=== PATIENT | female | born 1980 | race Caucasian/White ===

== ENCOUNTER 2017-05-17 18:33 | Emergency (ER) | payer MEDICAID ==
[~2017-05-17] VITALS: Ht 160 cm; Wt 97.2 kg
[~2017-05-17 18:33] MED LIST: BACTRIM DS 8001 TAB PO; CIPRO 500MG TA500 MG PO; FLEXERIL10 MG PO; FLOMAX 0.4MG C0.4 MG PO; FLOMAX0.4 MG PO; HYDROCODONE-APA1 TA1 PO; HYDROCODONE1 TABLET PO; IBU-8800 MG PO; IBUPROFEN800 MG PO; KEFLEX 500MG.500 MG PO; LORATADINE 10MG10 M1 PO; LORTAB 5/500 501 TAB PO; MACROBID 100MG100 MG PO; MONTELUKAST SOD10 MG PO; NOMEDS *; NORCO 325 MG-101 TAB PO; PERCOCET 325 MG1 TA3 PO; PHENERGAN 25MG.25 M1 PO; PRILOSEC OTC20 MG PO; PRILOSEC20 MG PO; TORADOL10 MG PO; ULTRAM50 MG PO; ZOFRAN ODT4 MG PO
--- OUTSIDE RECORDS SUMMARY | 2017-05-17 18:48 | External Medical Summary Rpt ---
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 66207 [facility] QUEST BCT 5 DIAGNOSTI DIAGNOSTI ISOL&PRSM CS CS PTV ID ISOLATE EA URINE THER 89350 TROY SIMMONS PROPH/DX 5 [facility] NJX IV INC INC PUSH SINGLE/1S T SBST/[place] [address] [facility] ABDOMEN & 5 MEDICAL BERT PELVIS IMAGING W/O ASS CONTRAST MATERIAL RADEX 43597 TROY SIMMONS ANKLE 5 [facility] COMPLETE INC INC MINIMUM 3 VIEWS CULTURE 27969 QUEST QUEST BACTERIAL 5 DIAGNOSTI DIAGNOSTI CS CS QUANTTATI VE COLONY COUNT URINE URINLS 23892 A C FIELD AMB DIP 5 NOAH VIDAL STICK/TAB PSC [place] [address] TROY SIMMONS LIPASE 3 [facility] INC INC URINE 06221 TROY SIMMONS 3 [facility] TEST INC INC VISUAL COLOR CMPRSN METHS COMPREHEN 58172 TROY SIMMONS SIVE 3 [facility] METABOLIC INC INC PANEL RADEX ABD 49523 DEON DEON COMPL 3 BERT BERT AQT ABD W/S/E/D VIEWS 1 VIEW BLOOD 37627 TROY SIMMONS COUNT 3 [facility] COMPLETE INC INC AUTO&AUTO DIFRNTL WBC BLOOD 43522 TROY SIMMONS COUNT 1 [facility] COMPLETE INC INC AUTO&AUTO DIFRNTL WBC COMPREHEN 13248 TROY SIMMONS SIVE 1 [facility] METABOLIC INC INC PANEL BLOOD 28507 TROY SIMMONS OCCULT 1 [facility] PEROXIDAS INC INC E ACTV QUAL FECES 1-3 SPEC URNLS DIP 44250 TROY SIMMONS 1 [facility] STICK/TAB INC INC LET REAGENT AUTO MICROSCOP Y URINE 96521 TROY SIMMONS 1 [facility] TEST INC INC VISUAL COLOR CMPRSN METHS ANTIBODY 83347 [facility] HELICOBAC [address] HOLDING HOLDING PYLORI IAADIADOO 74092 [facility] INGRID 1 [facility] JOSEP STREPTOCO E CENTER CCUS GROUP A LIPID 91424 [facility] PANEL 1 AMERIC AMERIC HOLDING HOLDING 25 25419 [facility] HYDROXY 1 AMERIC AMERIC INCLUDES HOLDING HOLDING FRACTIONS IF PERFORMED OPHTH 32632 [facility] MEDICAL 1 [facility] XM&EVAL CENTER COMPRE NEW PT 1/> VST DETERMINA 62834 [facility] TION 1 [facility] REFRACTIV CENTER E STATE COLLECTIO 20731 [facility] INGRID N VENOUS 1 [facility] JOSEP BLOOD E CENTER VENIPUNCT URE GENERAL 68024 [facility] HEALTH 1 AMERIC AMERIC PANEL HOLDING HOLDING IAADIADOO 00061 [facility] GRAVES 0 [facility]ALTH[facility] LES STREPTOCO E CENTER CCUS GROUP A URNLS DIP 60245 [facility] GRAVES, 0 [facility] JENS W STICK/TAB E CENTER LET RGNT AUTO W/O MICROSCOP Y GENERAL 08095 [facility] HEALTH 0 AMERIC AMERIC PANEL HOLDING HOLDING COLLECTIO 46973 [facility] GRAVES, N VENOUS 0 [facility] JENS W BLOOD E CENTER VENIPUNCT URE LAPAROSCO 14637 HARDEEP MEIER, PY SURG 0 GARY VEGA CHOLECYST ECTOMY BX LVR 54252 HARDEEP MEIER, NDL DONE 0 GARY GARY PURPOSE TM OTH MAJOR PX LEVEL V 73121 PATHOLOGY PATHOLOGY SURG 0 & & PATHOLOGY CYTOLOGY CYTOLOGY LAB LAB GROSS&TY ROSCOPIC EXAM LEVEL III 64524 PATHOLOGY PATHOLOGY SURG 0 & & PATHOLOGY CYTOLOGY CYTOLOGY LAB LAB GROSS&TY ROSCOPIC EXAM ANES 37257 [place] POND, INTRAPERI 0 ANESTHESI NICOLE D TONEAL A GROUP UPPER PSC ABDOMEN W/LAPS NOS SPCL STN 08157 PATHOLOGY PATHOLOGY 2 I&R 0 & & EXCPT CYTOLOGY CYTOLOGY MICROORG/ LAB LAB ENZYME/[place] [address] [facility] LIPASE 0 N N [facility] HPYLORI 29982 [facility] DRUG 0 N N ADMINISTR [facility] [place] [address] [facility] AMYLASE 0 N N [facility] BLOOD 40546 [facility] COUNT 0 N N COMPLETE [facility] AUTO&AUTO [facility] DIFRNTL WBC GONADOTRO 06255 [facility] PIN 0 N N [facility] QUALITATI VE COLLECTIO 02588 [facility] N VENOUS 0 N N BLOOD [facility] U[facility] COMPREHEN 68819 [facility] SIVE 0 N N METAB[facility] HEPATBL 73341 [facility] DUX SYS 0 N N IMG [facility] INJECTION J2805 [facility] [address] MICROGRAM S URNLS DIP 52278 [facility] BETTY, 0 [facility] JENS W STICK/TAB E CENTER LET RGNT AUTO W/O MICROSCOP Y URNLS DIP 79903 TROY SIMMONS 0 [facility] STICK/TAB INC INC LET REAGENT AUTO MICROSCOP Y URINE 02689 TROY SIMMONS 0 [facility] TEST INC [place] [address] [facility] ABDOMEN 9 N N W/CONTRAS [facility] [place] [address] [facility] [place] BRITTANEY, ABDOMEN 9 RADIOLOGY J W/O & W/CONTRAS T MATERIAL URINE 39937 [facility] ADRIANA, 9 [facility] TEST E CENTER VISUAL COLOR CMPRSN METHS URNLS DIP 97966 [facility] ADRIANA, 9 [facility] ALVINO STICK/TAB E CENTER LET RG[place] AUT[place] [address] [facility] RETROPERI 9 N N [facility] TIME [facility] W/IMAGE COMPLETE US PELVIC 67823 [facility] 9 N N NONOBSTET [facility] REAL-TIME IMAGE COMPLETE BLOOD 86517 [facility] COUNT 9 N N COMPLETE [facility] AUTO&AUTO [facility] HOSPITAL DIFRNTL WBC COMPREHEN 47281 [facility] SIVE 9 N N METABOLIC [facility] INJECTION J2405 [facility] 9 N N ONDANSETR [facility] PER 1 MG COLLECTIO 94346 [facility] N VENOUS 9 N N BLOOD [facility] [place] [address] [facility] AMYLASE 9 N N [facility] URNLS DIP 04619 [facility] 9 N N STICK/TAB [facility] REAGENT AUTO MICROSCOP Y URINALYSI 86600 [facility] S 9 N N MICROSCOP [facility] IC ONLY HOSPITAL HOSPITAL URINE 99377 [facility] 9 N N TEST [facility] [place] [address] [facility] LIPASE 9 N N [facility] INJECTION J1170 [facility] 9 N N HYDROMORP [facility] TO 4 MG GONADOTRO 22625 [facility] PIN 9 [facility] [place] [address] [facility] , TRANSVAGI 9 N DORINA L NAL OBSTETRIC S AND GYNECOLOG Y ETONOGEST J7307 [facility] HIGH ALBRIGHT, REL 9 N DORINA L CNTRACPT OBSTETRIC IMPL SYS S AND INCL IMPL GYNECOLOG & SPL Y BLOOD 71622 [facility] COUNT 9 [facility] COMPLETE AUTO&AUTO DIFRNTL WBC INSERTION 53943 [facility] HIGH ALBRIGHT, 9 N DORINA L IMPLANTAB OBSTETRIC LE S AND CONTRACEP GYNECOLOG TIVE Y CAPSULES CULTURE 62952 [facility] BACTERIAL 9 [facility] QUANTTATI VE COLONY COUNT URINE GONADOTRO 08730 [facility] PIN 9 [facility] CHORIONIC QUANTITAT [place] GONADOTRO 81078 [facility] PIN 9 N N CHORIONIC [facility] [place] [address] [facility], TRANSVAGI 9 N DORINA L NAL OBSTETRIC S AND GYNECOLOG Y COLLECTIO 01759 [facility] N VENOUS 9 N N BLOOD [facility] [place] PELVIS [address] [facility] [place] QUISPE, W/O [address] [place] [address] [facility] [place] QUISPE, ABDOMEN 9 RADIOLOGY J W/[place] [address] [facility] [place] QUISPE, TRANSVAGI 9 RADIOLOGY J NAL GUY 73525 JAZMÍN NOYOLA, POST-VOID 9 ROSA ROSA ING K K RESIDUAL URINE&/BL ADDER CAP URNLS DIP 08270 JAZMÍN NOYOLA 9 ROSA ROSA STICK/TAB K K LET RGNT NON-AUTO W/O MICRSCP COLLECTIO 14127 [facility] KLEBER, N VENOUS 9 [facility] BLOOD E [place] VENIPUNCT URE GENERAL 88116 [facility] HEALTH 9 AMERIC [employer] [place] [address] [facility] TESTOSTER 9 AMERIC AMERIC ONE TOTAL HOLDING HOLDING URNLS DIP 35629 [facility] KLEBER, 9 [facility] STICK/TAB E CENTER LET RGNT AUTO W/O MICROSCOP Y LIPID 38330 [facility] PANEL 9 AMERIC AMERIC HOLDING HOLDING HEMOGLOBI 67498 [facility] N 9 AMERIC AMERIC GLYCOSYLA [place] [address] [facility] [place] VALDO, ABDOMEN 8 RADIOLOGY BEAU G W/O CONTRAST [place]ERIAL CT PELVIS 444[address] [facility] [place] VALDO, W/O 8 RADIOLOGY BEAU G CONTRAST MATERIAL URINE 66406 [facility] KLEBER, 8 [facility] TEST E CENTER VISUAL COLOR CMPRSN METHS URINE 67705 [facility] KLEBER, 8 [facility] CENTER VISUAL COLOR CMPRSN [place] IADNA 39127 AMER[facility]ATH KG, STREPTOCO 8 [place] INC BEBO E CCUS GROUP B AMPLIFIED PROBE TQ IADNA 21673 [facility] AMERIPATH TRICHOMON 8 [place] INC INC VAGINALIS DIRECT PROBE TQ CYTP 08563 [facility] KG, CERV/VAG 8 [place] INC BEBO E AUTO THIN LAYER PREP MNL SCREEN IADNA 08253 [facility] KG, HERPES 8 [place] INC BEBO E SOMPLX VIRUS AMPLIFIED PROBE TQ IADNA 23458 [facility] KG, NEISSERIA 8 [place] INC BEBO E GONORRHOE AE AMPLIFIED PROBE TQ URNLS DIP 41263 [facility] KLEBER, 8 [facility] STICK/TAB E CENTER LET RGNT AUTO W/O MICROSCOP Y COLLECTIO 67902 [facility] N VENOUS 8 N N BLOOD [facility] URE CUL BACT 57449 [facility] XCPT 8 N N URINE [facility] BLOOD/[facility] [place] [address] [facility] STREPTOCO 8 N N CCUS [facility] APPLICATI 93.54 Audi ON OF Jeremy VIDAL SPLINT Encounters Encounter Start End Date Code Location Performer Type Date OFFICE 56017 [facility] TIM OUTPATIEN 6 6 PHYSICIAN T VISIT S GROUP 25 MINUTES OFFICE 12361 OLIVEIRA OLIVEIRA OUTPATIEN 6 6 T VISIT 25 MINUTES OFFICE 27039 [facility] OUTPATIEN 6 6 T VISIT 25 MINUTES HOSPITAL TROY - 6 6 [facility] OUTPATIEN INC T OFFICE 38929 [facility] T VISIT 5 HLTH DEPT HLTH DEPT MINUTES [facility] OFFICE 34986 GRAVES GRAVES CONSULTAT 6 6 LES LES ION NEW/ESTAB PATIENT 40 MIN OFFICE 69263 [facility] RACHEL OUTPATIEN 6 6 PHYSICIAN TY T VISIT S GROUP 15 MINUTES EMERGENCY 40118 OG DUMONT 6 6 PHYSICIAN TY DEPARTMEN S, PLLC T VISIT MODERATE SEVERITY OFFICE 93135 [facility] TIM OUTPATIEN 6 6 PHYSICIAN TY T NEW 20 S GROUP MINUTES OFFICE 21844 [facility] RACHEL OUTPATIEN 5 5 PHYSICIAN TY T VISIT S GROUP 15 MINUTES HOSPITAL TROY - 5 5 [facility] OUTPATIEN INC T EMERGENCY 19767 TROY 5 5 [facility] DEPARTMEN INC T VISIT HIGH/URGE NT SEVERITY EMERGENCY 92418 OG DUMONT 5 5 PHYSICIAN TY DEPARTMEN S, PLLC T VISIT MODERATE SEVERITY EMERGENCY 42277 OG PAGE 5 5 PHYSICIAN DEPARTMEN S, PLLC T VISIT HIGH/URGE NT SEVERITY OFFICE 80178 [facility] YODER OUTPATIEN 5 5 PHYSICIAN GINGER T NEW 30 S GROUP MINUTES OFFICE 63713 TROY RAMOS OUTPATIEN 5 5 MEMORIAL TY T VISIT HOSPITAL 10 MINUTES EMERGENCY 29106 OG DUMONT 5 5 PHYSICIAN TY DEPARTMEN S, PLLC T VISIT MODERATE SEVERITY OFFICE 31595 TROY RAMOS OUTPATIEN 5 5 [facility] T VISIT HOSPITAL 15 MINUTES EMERGENCY 40996 OG DUMONT DEPT 5 5 PHYSICIAN TY VISIT S, PLLC HIGH SEVERITY& THREAT FUNCJ EMERGENCY 92718 OG DUMONT 5 5 PHYSICIAN T[facility] HIGH/URGE NT SEVERITY EMERGENCY 21672 OG ANTHONY L 5 5 PHYSICIAN DEPARTMEN S, PLLC T VISIT HIGH/URGE NT SEVERITY OFFICE 93652 TROY SANDY OUTPATIEN 5 5 [facility] 20 [facility] MINUTES P OFFICE 98760 A C KILPELA OUTPATIEN 5 5 NOAH GUZMAN T VISIT [facility] 15 MINUTES HOSPITAL TROY - 5 5 [facility] OUTPATIEN INC T EMERGENCY 64624 TROY Thompson 5 5 [facility] T VISIT P MODERATE SEVERITY OFFICE 68955 A C FIELD AMB OUTPATIEN 5 5 NOAH VIDAL T VISIT PSC 15 MINUTES HOSPITAL TROY - 5 5 [facility] OUTPATIEN INC T OFFICE 98410 A C FIELD AMB OUTPATIEN 5 5 NOAH VIDAL T VISIT [facility] 15 MINUTES OFFICE 97200 [facility] PETTEShaista OUTPATIEN 4 4 PHYSICIAN JAM T VISIT S GROUP 15 MINUTES OFFICE 55286 TIM DUMONT OUTPATIEN 4 4 TY TY T VISIT 15 MINUTES OFFICE 51995 MORGAN RUBI OUTPATIEN 4 4 T NEW 30 MINUTES Emergency HECTOR Weiner MD (ER) 3 11:25 3 12:03 [facility] OFFICE 25714 SOCRATES CROWELL OUTPATIEN 3 3 ED ED T VISIT 15 MINUTES OFFICE 18877 SHARON SHELL SHARON SUMAYA OUTPATIEN 3 3 T VISIT 15 MINUTES OFFICE 34562 [facility] OUTPATIEN 3 3 PHYSICIAN T VISIT S GROUP 15 MINUTES EMERGENCY 66226 TROY 3 3 [facility] DEPARTMEN INC T VISIT LOW/MODER SEVERITY HOSPITAL TROY - 3 3 [facility] OUTPATIEN INC T EMERGENCY 73475 SO RIZZO DEPT 3 3 III KRISTINA III KRISTINA VISIT HIGH SEVERITY& THREAT FUN OFFICE 46085 MAYI MAYI OUTPATIEN 2 2 JASON JASON T VISIT 15 MINUTES HOSPITAL TROY - 1 1 [facility] OUTPATIEN INC T EMERGENCY 35092 TROY 1 1 [facility] DEPARTMEN INC T VISIT MODERATE SEVERITY EMERGENCY 59143 BORIS RIZZO DEPT 1 1 EMERGENCY III KRISTINA VISIT SERVICES HIGH SEVERITY& THREAT FUNCJ OFFICE 37995 [facility] INGRID OUTPATIEN 1 1 [facility] JO[facility]P T VISIT E CENTER 15 MINUTES OFFICE 00001 [facility] INGRID OUTPATIEN 1 1 [facility] T VISIT E CENTER 15 MINUTES OFFICE 77769 [facility] SALONI OUTPATIEN 1 1 [facility] HEN T VISIT E CENTER 15 MINUTES OFFICE 86643 [facility] INGRID OUTPATIEN 1 1 [facility]P T VISIT E CENTER 15 MINUTES OFFICE 42382 [facility] GRAVES OUTPATIEN 0 0 [facility] LES T VISIT E CENTER 15 MINUTES OFFICE 09562 [facility] GRAVES OUTPATIEN 0 0 [facility] LES T VISIT E CENTER 15 MINUTES OFFICE 01158 [facility] GRAVES, OUTPATIEN 0 0 [facility] JENS W T VISIT E CENTER 15 MINUTES OFFICE 29519 HARDEEP MEIER, CONSULTAT 0 0 GARY GIANG NEW/ESTAB PATIENT 80 MIN HOSPITAL [facility] - 0 0 N [facility]ITAL [facility] - 0 0 N [facility] OFFICE 36895 [facility] JENS W T VISIT E CENTER 15 MINUTES OFFICE 79432 [facility] 0 0 [facility] JENS W T VISIT E CENTER 15 MINUTES EMERGENCY 28268 TROY 0 0 [facility] DEPARTMEN INC T VISIT LOW/MODER SEVERITY HOSPITAL TROY - 0 0 [facility] OUTPATIEN INC T EMERGENCY 80867 BORIS WEINER, 0 0 [facility] T VISIT HIGH/URGE ASSOCIATE NT S SEVERITY OFFICE 73528 [facility] 0 0 [facility] LILIANA Smith T VISIT E CENTER 15 MINUTES HOSPITAL [facility] - 9 9 N [facility] OFFICE 78641 [facility] 9 9 [facility] ALVINO T VISIT E CENTER 15 MINUTES HOSPITAL [facility] - 9 9 N [facility] OFFICE 49864 [facility] 9 9 [facility]INO T VISIT E CENTER 15 MINUTES HOSPITAL [facility] - 9 9 N [facility] EMERGENCY 80246 BORIS GRACIA 9 9 EMERGENCY [place] DEPARTMEN SERVICES T VISIT HIGH/URGE NT SEVERITY EMERGENCY 49894 [facility] 9 9 N [facility] T VISIT HOSPITAL MODERATE SEVERITY OFFICE 39769 [facility] 9 9 N DORINA L T VISIT OBSTETRIC 10 S AND MINUTES GYNECOLOG Y HOSPITAL [facility]02 [facility] 9 9 N DORINA Thompson T NEW 45 OBSTETRIC MINUTES S AND GYNECOLOG Y EMERGENCY 07097 [facility], DEPT 9 9 DIAN Olivier VISIT EMERGENCY HIGH PHYS INC SEVERITY& THREAT FUNCJ OFFICE 49708 WINDISCH, LANISCH, CONSULTAT 9 9 ROSA ROSA GIANG K K NEW/ESTAB PATIENT 40 MIN OFFICE 20803 TOMMIE VILLAGRAN 9 9 [facility] T VISIT E CENTER 15 MINUTES HOSPITAL [facility] 15387 [facility] 8 8 N [facility] T VISIT HOSPITAL LIMITED/M INOR PROB EMERGENCY 50156 [facility], 8 8 DIAN MAZIN Olivier DEPARTMEN EMERGENCY T VISIT PHYS INC MODERATE SEVERITY EMERGENCY 28282 [facility], 8 8 DIAN HERNAN [facility] EMERGENCY A T VISIT PHYS INC HIGH/URGE NT SEVERITY OFFICE 71165 TOMMIE VILLAGRAN 8 8 [facility] T VISIT E CENTER 10 MINUTES PERIODIC 84475 TANYA SHAHID PREVENTIV 8 8 [facility] E MED EST E CENTER PATIENT 18-39 YRS OFFICE 52270 TOMMIE VILLAGRAN 8 8 [facility] T VISIT E CENTER 15 MINUTES EMERGENCY 94215 [facility] 8 DIAN BECERRA VISIT EMERGENCY A HIGH PHYS INC SEVERITY& THREAT FUNCJ EMERGENCY 05058 [facility] 8 8 N [facility] T VISIT HOSPITAL MODERATE SEVERITY HOSPITAL [facility] 8 [facility] OFF[facility] 62276 TOMMIE VILLAGRAN 8 8 [facility] WILLIAMS T VISIT E CENTER 15 MINUTES
--- OUTSIDE RECORDS SUMMARY | 2017-05-17 18:48 | External Medical Summary Rpt ---
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 5 5 [facility] OUTPATIEN INC T EMERGENCY 75235 TROY Thompson 5 5 [facility] T VISIT P MODERATE SEVERITY OFFICE 61157 A C FIELD AMB OUTPATIEN 5 5 NOAH VIDAL T VISIT PSC 15 MINUTES HOSPITAL TROY - 5 5 [facility] OUTPATIEN INC T OFFICE 39554 A C FIELD AMB OUTPATIEN 5 5 NOAH VIDAL T VISIT [facility] 15 MINUTES OFFICE 32240 [facility] PETTEShaista OUTPATIEN 4 4 PHYSICIAN JAM T VISIT S GROUP 15 MINUTES OFFICE 28256 TIM [facility] OUTPATIEN 4 4 TY TY T VISIT 15 MINUTES OFFICE 00885 MORGAN RUBI OUTPATIEN 4 4 T NEW 30 MINUTES Emergency HECTOR Weiner MD (ER) 3 11:25 3 12:03 [facility] OFFICE 22627 SOCRATES CROWELL OUTPATIEN 3 3 ED ED T VISIT 15 MINUTES OFFICE 04281 SHARON SHELL SHARON SUMAYA OUTPATIEN 3 3 T VISIT 15 MINUTES OFFICE 65019 [facility] OUTPATIEN 3 3 PHYSICIAN T VISIT S GROUP 15 MINUTES EMERGENCY 00165 TROY 3 3 [facility] DEPARTMEN INC T VISIT LOW/MODER SEVERITY HOSPITAL TROY - 3 3 [facility] OUTPATIEN INC T EMERGENCY 13745 SO RIZZO DEPT 3 3 III KRISTINA III KRISTINA VISIT HIGH SEVERITY& THREAT FUN OFFICE 02883 MAYI MAYI OUTPATIEN 2 2 JASON JASON T VISIT 15 MINUTES HOSPITAL TROY - 1 1 [facility] OUTPATIEN INC T EMERGENCY 56402 TROY 1 1 [facility] DEPARTMEN INC T VISIT MODERATE SEVERITY EMERGENCY 37396 BORIS RIZZO DEPT 1 1 EMERGENCY III KRISTINA VISIT SERVICES HIGH SEVERITY& THREAT FUNCJ OFFICE 87725 HORIZON INGRID OUTPATIEN 1 1 [facility] T VISIT E CENTER 15 MINUTES OFFICE 62535 HORIZON INGRID OUTPATIEN 1 1 [facility] T VISIT E CENTER 15 MINUTES OFFICE 25401 HORIZON SALONI OUTPATIEN 1 1 [facility] HEN T VISIT E CENTER 15 MINUTES OFFICE 41680 HORIZON INGRID OUTPATIEN 1 1 [facility] JO[facility] T VISIT E CENTER 15 MINUTES OFFICE 32097 HORIZON GRAVES OUTPATIEN 0 0 [facility] LES T VISIT E CENTER 15 MINUTES OFFICE 24210 HORIZON GRAVES OUTPATIEN 0 0 [facility] LES T VISIT E CENTER 15 MINUTES OFFICE 65062 HORIZON GRAVES, OUTPATIEN 0 0 [facility] JENS W T VISIT E CENTER 15 MINUTES OFFICE 68186 HARDEEP MEIER, CONSULTAT 0 0 GARY GIANG NEW/ESTAB PATIENT 80 MIN HOSPITAL [facility] - 0 0 N [facility] - 0 0 N [facility]OSPITAL OFFICE 33696 [facility] 0 0 [facility] JENS W T VISIT E CENTER 15 MINUTES OFFICE 95966 [facility] 0 0 [facility] JENS W T VISIT E CENTER 15 MINUTES EMERGENCY 95609 TROY 0 0 [facility] DEPARTMEN INC T VISIT LOW/MODER SEVERITY HOSPITAL TROY - 0 0 [facility] OUTPATIEN INC T EMERGENCY 41419 BORIS WEINER, 0 0 EMERGENCY [facility]UDI[facility] O T VISIT HIGH/URGE ASSOCIATE NT S SEVERITY OFFICE 85739 [facility] 0 0 [facility] LILIANA Smith T VISIT E CENTER 15 MINUTES HOSPITAL [facility] - 9 9 N [facility] HOSPITAL OFFICE 90590 [facility] 9 9 [facility] T VISIT E CENTER 15 MINUTES HOSPITAL [facility] - 9 9 N [facility]OSP[facility] OFFICE 31814 [facility] 9 9 [facility] T VISIT E CENTER 15 MINUTES HOSPITAL [facility] - 9 9 N [facility] HOSPITAL EMERGENCY 69656 BORIS GRACIA 9 9 EMERGENCY [facility] DEPARTMEN SERVICES T VISIT HIGH/URGE NT SEVERITY EMERGENCY 46677 [facility] 9 9 N [facility] T VISIT HOSPITAL MODERATE SEVERITY OFFICE 66956 [facility] 9 9 N DORINA L T VISIT OBSTETRIC 10 S AND MINUTES GYNECOLOG Y HOSPITAL [facility] - 9 9 N [facility] OFF[facility] 92011 [facility] 9 9 N DORINA Thompson T NEW 45 OBSTETRIC MINUTES S AND GYNECOLOG Y EMERGENCY 13006 [facility], DEPT 9 9 DIAN Olivier VISIT EMERGENCY HIGH PHYS INC SEVERITY& THREAT FUNCJ OFFICE 95534 WINDISCH, LANISCH, CONSULTAT 9 9 ROSA ROSA GIANG K K NEW/ESTAB PATIENT 40 MIN OFFICE 63773 TOMMIE VILLAGRAN 9 9 [facility] T VISIT E CENTER 15 MINUTES HOSPITAL [facility] - 8 8 N [facility]PITAL EMERGENCY 88534 [facility] 8 8 N [facility] T VISIT HOSPITAL LIMITED/M INOR PROB EMERGENCY 20345 [facility], 8 8 DIAN MAZIN Olivier DEPARTMEN EMERGENCY T VISIT PHYS INC MODERATE SEVERITY EMERGENCY 13340 [facility], 8 8 DIAN HERNAN [facility] EMERGENCY A T VISIT PHYS INC HIGH/URGE NT SEVERITY OFFICE 03192 TOMMIE VILLAGRAN 8 8 [facility] T VISIT E CENTER 10 MINUTES PERIODIC 10198 TANYA SHAHID PREVENTIV 8 8 [facility] E MED EST E CENTER PATIENT 18-39 YRS OFFICE 26903 TOMMIE VILLAGRAN 8 8 [facility] T VISIT E CENTER 15 MINUTES EMERGENCY 46361 [facility] 8 DIAN BECERRA VISIT EMERGENCY A HIGH PHYS INC SEVERITY& THREAT FUNCJ EMERGENCY 83953 [facility] 8 8 N [facility] T VISIT HOSPITAL MODERATE SEVERITY HOSPITAL [facility] - 8 8 N [facility]PITAL OFFICE 91902 TOMMIE VILLAGRAN 8 8 [facility] T VISIT E CENTER 15 MINUTES
--- NOTE | 2017-05-17 18:52 | Urgent Treatment Center Report ---
History of Present Issue Date/Time Seen by Provider 05/17/17 0445 Visit Reason Pt arrived:Walked Presenting Problem:PT C/O OF MIGRAINE AND VOMITING FOR 3 DAYS Location if Accident: Onset of symptoms date/time:05/14/1706/22/900 or onset unknown for: Have you (or family members/close friends) recently traveled outside the [place]? N If Yes, where/when: Have you had exposure to infectious disease within the past month? TB? Other? Specify: c/o "another migraine. It has been 24 hours now and I am ready for relief.". 16 year old son is w/ patient but doesn't yet drive. Hx of migraines. Has previously been on daily topamax w/ PRN maxalt. Topamax was stopped due to side effects and hasn't had frequent migraines "in years. Just the occasional one." Reports frequent headaches that get better w/ ibuprofen and rest with only occasional migraines now. Symptoms started last night. Typical. No aura. Frontal. 04/14. aching. Light sensitivity but no sound sensitivity. typical nausea but this time, vomiting 2-3 times today as well. "because I tried to eat despite the nausea". 10 OTC ibuprofen spaced out between 10pm last night and 10am this morning. Didn't really help. Hasn't taken anything since and hasn't tried anything else. NO fever, no malaise. Source patient Exam Limitations no limitations ALLERGIES Coded Allergies: amoxicillin (12/15/15) Home Medications Active Scripts CEPHALEXIN (Keflex 500MG Capsule) 500 MG PO Q8H #21 CAP Prov: 12/15/15 Reported Medications Montelukast Sodium 10 MG PO DAILY #30 History Medical History General CAD? No Angina: No NH: No Hypertension? No Hyperlipidemia? No CHF? No DVT? No PE? No COPD? No Asthma? No Anemia? No GERD? No Gastric ulcers? No GI Bleed? No Hernia? No Thyroid Problems? No Hypothyroidism? No CVA? No Seizures? No Diabetes? No Insulin Dependent: No Insulin Pump: No Home FSBS? No Renal Insuffiency? No UTI? Yes Stones? Yes BPH? No GB Disease: Yes Nephritic Syndrome? No Asplenia? No Hepatitis? No Sickle Cell Disease? No Arthritis? Yes Migraines? Yes Cataracts? No Glaucoma? No MRSA? No HIV? No TB? No Anxiety? No Depression? No Cancer? No More? No Immunization HX DT/Tetanus Unknown Flu Refused Pneumonia Never Had Surgical Hx Previous Surgery?Y GALLBLADDER Family History Family HX Diabetes Yes CAD Yes Hypertension Yes Hyperlipidemia Yes Cancer Yes TB No Social History Smoking Hx Smoker: Current Every Day Smoker Tobacco: Yes Type Cigarettes Packs/day < 1 Pack Alcohol Alcohol: No Review of Systems All Other Systems Reviewed and Negative Constitutional see HPI Eyes denies vision change ENT denies: other (no change hearing). Gastrointestinal see HPI, denies abdominal pain, denies diarrhea Musculoskeletal denies muscle stiffness, denies neck pain Skin denies lesions, denies rash Psychiatric/Neurological see HPI, denies other (dizziness) Physical Exam Vital Signs Vital Signs Date Time Temp Pulse Resp B/P Pulse O2 O2 Flow FiO2 Ox Delivery Rate 05/17 1845 98.6 82 20 120/83 100 General Appearance no apparent distress, obese, sitting on exam table, looking on phone, lights fully on in room without any sign of distress, laughing with son Eye Exam - bilateral eye normal exam (x/ wearing glasses) Ear, Nose, Throat normal ENT inspection Neck normal inspection, non-tender, supple Respiratory Status No: respiratory distress. Lung Sounds anterior: lungs clear. posterior: lungs clear. bilateral: lungs clear. Cardiovascular regular rate/rhythm, no peripheral edema, no murmur Neurologic alert, counsellors II-XII nml as tested, normal exam, oriented x 3 Mental status normal mood/affect Skin normal color, warm/dry Medical Decision Making LABS/Meds/Orders Pt receiving controlled substance in ED? No Results/Orders Current Medication Orders Sig/Eliza Start time Last Medication Dose Route Stop Time Status Admin Ketorolac 60 MG ONCE ONE 05/17 1915 DC Tromethamine IM 05/17 1916 Promethazine HCl 25 MG ONCE ONE 05/17 1915 DC IM 05/17 1916 Sodium Chloride 25 ML ONCE ONE 05/17 1915 DC IV 05/17 1929 Promethazine HCl 0 .STK-MED ONE 05/17 1914 DC .ROUTE Ketorolac 0 .STK-MED ONE 05/17 1913 DC Tromethamine .ROUTE Progress [facility] Progress Notes 1 Date 05/17/17 Time 1855 Comment Rather have promethazine. Called sister to drive her home. Waiting for her to arrive before injections are given. [facility] Progress Notes 2 Date 05/17/17 Time 191 Comment Sister arrived. [facility] Progress Notes 3 Date 05/17/17 Time 1938 Comment Little improvement. Ready to go home and rest. Departure Departure Time of Disposition 1937 Disposition DC Home or Self Care(routine) Clinical Impression Primary Impression: Migraine Qualifiers: Migraine type: without aura Status migrainosus presence: without status migrainosus Intractability: not intractable Qualified Code: G43.009 - Migraine without aura, not intractable, without status migrainosus Secondary Impressions: Nausea & vomiting Qualifiers: Vomiting type: unspecified Vomiting Intractability: non-intractable Qualified Code: R11.2 - Nausea with vomiting, unspecified Condition STABLE Referrals Silvia VIDAL,Zenon Santos (Family) Return immediately for new or worsening symptoms. FU Dr. Vega if symptoms persist or migraines start to become more frequent again. Patient Instructions DI for Migraine Additional Instructions Go home and lay down in a quiet, dark room and rest. Cool washrag to forehead. Promethazine makes you drowsy. 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 You had toradol, an anti-inflammatory, in clinic around 1920. This is similiar to ibuprofen. No additional ibuprofen until morning. Be careful about the amount of ibuprofen you take when you take more. No more than 800mg per dose, typically every 6 hours and no more than 3200mg in 24 hours. Discharge Counseling Counseled pt/family regarding diagnosis, medications/RX, home care, follow up needs at 1940
--- NOTE | 2017-05-17 18:52 | Urgent Treatment Center Report ---
History of Present Issue Date/Time Seen by Provider 05/17/17 8035 Visit Reason Pt arrived:Walked Presenting Problem:PT C/O OF MIGRAINE AND VOMITING FOR 3 DAYS Location if Accident: Onset of symptoms date/time:05/14/1706/22/900 or onset unknown for: Have you (or family members/close friends) recently traveled outside the [place]? N If Yes, where/when: Have you had exposure to infectious disease within the past month? TB? Other? Specify: c/o "another migraine. It has been 24 hours now and I am ready for relief.". 16 year old son is w/ patient but doesn't yet drive. Hx of migraines. Has previously been on daily topamax w/ PRN maxalt. Topamax was stopped due to side effects and hasn't had frequent migraines "in years. Just the occasional one." Reports frequent headaches that get better w/ ibuprofen and rest with only occasional migraines now. Symptoms started last night. Typical. No aura. Frontal. 04/14. aching. Light sensitivity but no sound sensitivity. typical nausea but this time, vomiting 2-3 times today as well. "because I tried to eat despite the nausea". 10 OTC ibuprofen spaced out between 10pm last night and 10am this morning. Didn't really help. Hasn't taken anything since and hasn't tried anything else. NO fever, no malaise. Source patient Exam Limitations no limitations ALLERGIES Coded Allergies: amoxicillin (12/15/15) Home Medications Active Scripts CEPHALEXIN (Keflex 500MG Capsule) 500 MG PO Q8H #21 CAP Prov: 12/15/15 Reported Medications Montelukast Sodium 10 MG PO DAILY #30 History Medical History General CAD? No Angina: No OK: No Hypertension? No Hyperlipidemia? No CHF? No DVT? No PE? No COPD? No Asthma? No Anemia? No GERD? No Gastric ulcers? No GI Bleed? No Hernia? No Thyroid Problems? No Hypothyroidism? No CVA? No Seizures? No Diabetes? No Insulin Dependent: No Insulin Pump: No Home FSBS? No Renal Insuffiency? No UTI? Yes Stones? Yes BPH? No GB Disease: Yes Nephritic Syndrome? No Asplenia? No Hepatitis? No Sickle Cell Disease? No Arthritis? Yes Migraines? Yes Cataracts? No Glaucoma? No MRSA? No HIV? No TB? No Anxiety? No Depression? No Cancer? No More? No Immunization HX DT/Tetanus Unknown Flu Refused Pneumonia Never Had Surgical Hx Previous Surgery?Y GALLBLADDER Family History Family HX Diabetes Yes CAD Yes Hypertension Yes Hyperlipidemia Yes Cancer Yes TB No Social History Smoking Hx Smoker: Current Every Day Smoker Tobacco: Yes Type Cigarettes Packs/day < 1 Pack Alcohol Alcohol: No Review of Systems All Other Systems Reviewed and Negative Constitutional see HPI Eyes denies vision change ENT denies: other (no change hearing). Gastrointestinal see HPI, denies abdominal pain, denies diarrhea Musculoskeletal denies muscle stiffness, denies neck pain Skin denies lesions, denies rash Psychiatric/Neurological see HPI, denies other (dizziness) Physical Exam Vital Signs Vital Signs Date Time Temp Pulse Resp B/P Pulse O2 O2 Flow FiO2 Ox Delivery Rate 05/17 1845 98.6 82 20 120/83 100 General Appearance no apparent distress, obese, sitting on exam table, looking on phone, lights fully on in room without any sign of distress, laughing with son Eye Exam - bilateral eye normal exam (x/ wearing glasses) Ear, Nose, Throat normal ENT inspection Neck normal inspection, non-tender, supple Respiratory Status No: respiratory distress. Lung Sounds anterior: lungs clear. posterior: lungs clear. bilateral: lungs clear. Cardiovascular regular rate/rhythm, no peripheral edema, no murmur Neurologic alert, shed boss II-XII nml as tested, normal exam, oriented x 3 Mental status normal mood/affect Skin normal color, warm/dry Medical Decision Making LABS/Meds/Orders Pt receiving controlled substance in ED? No Results/Orders Current Medication Orders Sig/Eliza Start time Last Medication Dose Route Stop Time Status Admin Ketorolac 60 MG ONCE ONE 05/17 1915 DC Tromethamine IM 05/17 1916 Promethazine HCl 25 MG ONCE ONE 05/17 1915 DC IM 05/17 1916 Sodium Chloride 25 ML ONCE ONE 05/17 1915 DC IV 05/17 1929 Promethazine HCl 0 .STK-MED ONE 05/17 1914 DC .ROUTE Ketorolac 0 .STK-MED ONE 05/17 1913 DC Tromethamine .ROUTE Progress [facility] Progress Notes 1 Date 05/17/17 Time 1855 Comment Rather have promethazine. Called sister to drive her home. Waiting for her to arrive before injections are given. [facility] Progress Notes 2 Date 05/17/17 Time 191 Comment Sister arrived. [facility] Progress Notes 3 Date 05/17/17 Time 1938 Comment Little improvement. Ready to go home and rest. Departure Departure Time of Disposition 1937 Disposition DC Home or Self Care(routine) Clinical Impression Primary Impression: Migraine Qualifiers: Migraine type: without aura Status migrainosus presence: without status migrainosus Intractability: not intractable Qualified Code: G43.009 - Migraine without aura, not intractable, without status migrainosus Secondary Impressions: Nausea & vomiting Qualifiers: Vomiting type: unspecified Vomiting Intractability: non-intractable Qualified Code: R11.2 - Nausea with vomiting, unspecified Condition STABLE Referrals Silvia VIDAL,Zenon Santos (Family) Return immediately for new or worsening symptoms. FU Dr. Vega if symptoms persist or migraines start to become more frequent again. Patient Instructions DI for Migraine Additional Instructions Go home and lay down in a quiet, dark room and rest. Cool washrag to forehead. Promethazine makes you drowsy. 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 You had toradol, an anti-inflammatory, in clinic around 1920. This is similiar to ibuprofen. No additional ibuprofen until morning. Be careful about the amount of ibuprofen you take when you take more. No more than 800mg per dose, typically every 6 hours and no more than 3200mg in 24 hours. Discharge Counseling Counseled pt/family regarding diagnosis, medications/RX, home care, follow up needs at 1940
--- OUTSIDE RECORDS SUMMARY | 2017-05-17 18:52 | External Medical Summary Rpt ---
Author Author , JED ADKINS Address Unknown Phone [email or web address] Care Team Providers Care Yardage Estimator Name Role Phone A Leslie ZAMORA MD PSC, Sofiya Unavailable Unavailable Leslie ZAMORA MD PSC VIKA SINCLAIR, VIKA Unavailable Unavailable [facility] Unavailable Unavailable CENTER, [facility] AHMED, BECERRA A, Unavailable Unavailable AHMED, BECERRA A [facility] [place] Unavailable Unavailable INC, [facility] Anshul QUISPE, Unavailable Unavailable Anshul QUISPE ED, SOCRATES Unavailable Unavailable ED GABRIELLE LEIVA Unavailable Unavailable KAPOOR ALL, KAPOOR ALL Unavailable Unavailable OLIVEIRA, OLIVEIRA Unavailable Unavailable OLIVEIRA, OLIVEIRA Unavailable Unavailable SHARON SUMAYA, SHARON SUMAYA Unavailable Unavailable CAROLINA JR KRISTINA, CAROLINA Unavailable Unavailable JR KRISTINA DEON BERT, Unavailable Unavailable DEON BERT DEON BERT, Unavailable Unavailable DEON BERT [facility] # [id number], Unavailable Unavailable [facility] [id number] [facility], Unavailable Unavailable [facility] 2332 KLEBER, WILLIAMS, KLEBER, Unavailable Unavailable WILLIAMS RACHEL TY, RACHEL Unavailable Unavailable TY GARY MEIER, Unavailable Unavailable GARY MEIER MAYI JASON, Unavailable Unavailable MAYI JASON FIELD AM[facility], FIELD AMB Unavailable Unavailable TIM, TIM Unavailable Unavailable TIM TY, TIM Unavailable Unavailable TY TIM TY, TIM Unavailable Unavailable TY [facility] Unavailable Unavailable [facility] GRAVES LES, GRAVES Unavailable Unavailable LES GRAVES LES, GRAVES Unavailable Unavailable LES GRAVES, JENS W, Unavailable Unavailable GRAVES, JENS W VALDO, BEAU G, Unavailable Unavailable VALDO, BEAU G HABASH KEF, HABASH Unavailable Unavailable KEF [facility] Unavailable Unavailable INC, [facility] Unavailable Unavailable [facility] HIGH JRDORINA L, Unavailable Unavailable HIGH JR DORINA L [facility], Unavailable Unavailable [facility] Unavailable Unavailable [place], [facility] Unavailable Unavailable [facility], [facility] KILPELA JEA, KILPELA Unavailable Unavailable JEA [facility] Unavailable Unavailable HOLD[facility], [facility] Unavailable Unavailable HOLDING, [facility], Unavailable Unavailable [facility] YODER GINGER, YODER Unavailable Unavailable GINGER [facility] Unavailable Unavailable SERVICES, [facility] MORGAN ELICIA, MORGAN ELICIA Unavailable Unavailable MORGAN ELICIA, MORGAN ELICIA Unavailable Unavailable [facility], Un[facility]available [facility], [facility] Unavailable Unavailable LAB, [facility] PETTEY JAM, PETTEY Unavailable Unavailable JAM SALONI HEN, SALONI Unavailable Unavailable HEN [facility], Unavailable Unavailable [facility], Unavailable Unavailable [facility] Unavailable Unavailable [id number] # [id number], [facility] [id number] # [id number] SADEK MOH, SADEK MOH Unavailable Unavailable SADEK, MOHAMED H, Unavailable Unavailable SADEK, MOHAMED H GRACIA EASLEY, GRACIA Unavailable Unavailable EASLEY SCALF LEI, SCALF LEI Unavailable Unavailable SCALF LEI, SCALF LEI Unavailable Unavailable ADRIANAAVLINO Marin, ADRIANA, Unavailable Unavailable NICOLE ZUÑIGA, Unavailable Unavailable NICOLE POND SOKAN, MARGARITA O, Unavailable Unavailable SOKAN, MARGARITA O SOTINGEANU MEGAN, Unavailable Unavailable SOTINGEANU MEGAN JENNIFER NORRIS, Unavailable Unavailable BEBO KRISHNA, Unavailable Unavailable BEBO SAUL LYNN M, Unavailable Unavailable LILIANA SHETH INGRID JOSEP, INGRID Unavailable Unavailable JOSEP [facility] # Unavailable Unavailable [id number], [facility] # [id number] [id number] # Unavailable Unavailable [id number], [id number] # [id number] [facility] Unavailable Un[facility] Un[facility] WEHRMAN III KRISTINA, Unavailable Unavailable WEHRMAN III KRISTINA WEHRMAN III KRISTINA, Unavailable Unavailable WEHRMAN III ROSA MURRAY, Unavailable Unavailable ROSA NOYOLA Purpose Continuity of Care Document - 11-21-2007 through 2016 Problems Code Diagnosis DOS Provider Status L409 PSORIASIS 08-19-2016 [facility] M2550 PAIN IN 08-19-2016 [facility] UNSPECIFIED [facility]YSICIANS JOINT GROUP L400 PSORIASIS 08-12-2016 [facility] VULGARIS [id number] OTHER LONG 08-12-2016 OL[facility] TERM CURRENT DRUG THERAPY L408 OTHER 07-09-2016 [facility] L578 OT SKN 07-09-2016 OLIVEIRA CHANGES D/T CHRN EXPS TO NONIONIZING RAD Z111 ENCOUNTER 05-20-2016 [facility] RESPIRATORY CLIFF TUBERCULOSI S 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 L298 OTHER 02-19-2016 [facility] LES PRURITUS L853 XEROSIS 02-19-2016 [facility] LES CUTIS [id number] MIGRAINE 12-21-2015 [facility] UNS NOT PHYSICIANS INTRACT W/O GROUP STATUS MIGRAINOSUS J209 ACUTE 12-21-2015 [facility] BRONCHITIS PHYSICIANS UNSPECIFIED GROUP R112 NAUSEA WITH 12-21-2015 [facility] VOMITING PHYSICIANS UNSPECIFIED GROUP R51 HEADACHE 12-15-2015 [facility] 5920 CALCULUS OF 06-15-2015 [facility] 5921 CALCULUS OF 06-15-2015 [facility] 51125 ABDOMINAL 06-13-2015 [place] PAIN OTHER MEDICAL SPECIFIED IMAGING ASS SITE 5589 OTH&UNSPEC 06-12-2015 [facility]ECT[facility] GASTROENTER ITIS&COLITI S 6202 OTHER AND 06-10-2015 [place] UNSPECIFIED MEDICAL OVARIAN IMAGING ASS CYST 23508 VOMITING 06-10-2015 [place] ALONE [facility] 78717 UNSPECIFIED 06-05-2015 [facility] INFECTIVE PHYSICIANS OTITIS GROUP EXTERNA 4779 ALLERGIC 06-05-2015 [facility] RHINITIS PHYSICIANS CAUSE GROUP UNSPECIFIED 15737 ACUT 05-31-2015 [facility] OT[facility] MEDIA W/SPONT RUP EARDRUM 16852 ACUT 05-03-2015 [facility] OTITIS [facility] MEDIA W/O SPONT RUP EARDRUM 5990 URINARY 05-03-2015 [facility] INFECTION [facility] SITE NOT SPECIFIED 591 HYDRONEPHRO 02-26-2015 [place] SIS MEDICAL IM[facility]ING ASS 82037 ABDOMINAL 02-26-2015 [facility] PAIN, MEDICAL UNSPECIFIED IMAGING ASS SITE 5935 HYDROURETER 02-25-2015 [facility] 7880 RENAL COLIC 02-25-2015 [facility] 40068 ESOPHAGEAL 02-02-2015 A Leslie ZAMORA REFLUX [facility] 7245 UNSPECIFIED 02-02-2015 A Leslie ZAMORA BACKACHE [facility] 7881 DYSURIA 02-02-2015 [facility] 91836 HEMATURIA 01-12-2015 [place] UNSPECIFIED MEDICAL IMAGING ASS 4659 ACUTE URIS 11-01-2014 A Leslie SANCHEZ [facility] UNSPECIFIED SITE 65281 PAIN IN 11-01-2014 [place] JOINT, MEDICAL ANKLE AND IMAGING ASS FOOT 3804 IMPACTED 10-10-2014 A Leslie WARD MD [facility] 79794 ACHILLES 08-30-2014 [facility] BURSITIS OR PHYSICIANS TENDINITIS GROUP 32912 OTHER ANKLE 08-30-2014 [facility] SPRAIN AND PHYSICIANS STRAIN GROUP 4619 ACUTE 05-26-2014 TIM TY SINUSITIS, UNSPECIFIED 4770 ALLERGIC 03-29-2014 MORGAN ELICIA RHINITIS DUE TO POLLEN 7804 DIZZINESS 03-29-2014 MORGAN ELICIA AND GIDDINESS 29075 DIARRHEA 10-16-2012 [facility] 54896 ABDOMINAL 10-16-2012 WEHRMAN III PAIN, KRISTINA EPIGASTRIC V4589 OTHER 10-16-2012 DEON POSTSURGICA BERT L STATUS OTHER 23057 NAUSEA WITH 05-23-2011 [facility] 03744 NAUSEA 05-23-2011 [facility] EMERGENCY SERVICES 462 ACUTE 01-04-2011 [facility] PHARYNGITIS HEALTHCARE CENTER 7862 COUGH 01-04-2011 [facility] 06884 UNSPECIFIED 11-16-2010 [facility] SEBORRHEIC [facility] DERMATITIS CENTER 3671 MYOPIA 11-08-2010 [facility] 89034 REGULAR 11-08-2010 [facility] 45396 OTHER 11-08-2010 [facility] 7836 POLYPHAGIA 11-08-2010 [facility] 74961 OTHER 11-06-2010 [facility] ABNORMAL [facility] GLUCOSE CENTER 7835 POLYDIPSIA 10-31-2010 [facility] V703 OTH GENERAL 10-31-2010 [facility] MEDICAL [facility] EXAMINATION CENTER ADMIN PURPOSES 20213 MIGRAINE 07-26-2010 [facility] UNSP W/O HEALTHCARE INTRACT W/O CENTER STATUS MIGRAINOSUS 7823 EDEMA 05-21-2010 [facility] 02231 UNSPECIFIED 02-06-2010 PATHOLOGY & CHRONIC CYTOLOGY HEPATITIS LAB 5718 OTHER 02-06-2010 GURJIT MEIER NONALCOHOLI C LIVER DISEASE 30220 CHOLECYSTIT 02-06-2010 [place] IS, ANESTHESIA UNSPECIFIED GROUP PSC 18569 CHRONIC 02-06-2010 PATHOLOGY & CHOLECYSTIT CYTOLOGY IS LAB 5756 CHOLESTEROL 02-06-2010 HARDE[facility], OSIS OF GARY G[facility] 5758 OTHER 01-31-2010 [facility], SPECIFIED GARY DISORDER OF GALLBLADDER V7283 OTHER 01-31-2010 [facility] PRE-OPERATI HOSPITAL VE EXAMINATION 19483 ABDOMINAL 01-25-2010 [facility] [place] PAIN RIGHT RADIOLOGY UPPER QUADRANT 46533 ABDOMINAL 01-25-2010 [facility] TENDERNESS [facility] RIGHT UPPER HOSPITAL QUADRANT 6269 UNS D/O 01-23-2010 [facility] MENSTRUATIO [facility] N&OTH ABN CENTER BLEED FE GNT TRACT 7242 LUMBAGO 01-23-2010 [facility] CENTER 34725 UNSPECIFIED 01-09-2010 [facility] CONSTIPATIO CENTER N 9953 ALLERGY 12-25-2009 [facility] NOT CENTER ELSEWHERE CLASSIFIED 26940 CALCU 07-21-2009 [facility] W/O MENTION SERVICES CHOLECYST/O BST 6259 UNSPEC 03-23-2009 [facility] AND W/FEMALE GYNECOLOGY GENITAL ORGANS V255 INSERTION 03-23-2009 [facility] OF OBSTETRICS IMPLANTABLE [place] [address] COMPLETE 03-17-2009 [facility] SPONTANEOUS OBSTETRICS AB WITHOUT AND MENTION GYNECOLOGY COMP 6268 OT D/O 02-17-2009 [facility] MENSTRUATIO [facility] N&OTH [facility] H[facility]PITAL BLEED FE GNT TRACT 632 MISSED 02-17-2009 [facility] AND GYNECOLOGY 6200 FOLLICULAR 02-15-2009 [facility] [place] CYST OF RADIOLOGY OVARY 72916 URGENCY OF 10-18-2008 JAZMÍN, URINATION ROSA K V1301 PERSONAL 10-18-2008 JAZMÍN, HISTORY OF ROSA K URINARY CALCULI V1302 PERSONAL 10-18-2008 JAZMÍN, HISTORY OF ROSA K URINARY TRACT INFECTION 7041 HIRSUTISM 10-10-2008 [facility] 85768 POLYURIA 10-10-2008 [facility] 7821 RASH AND 08-29-2008 [facility] OTHER [facility] NONSPECIFIC HOSPITAL SKIN ERUPTION V642 SURG/OTH 08-29-2008 [facility] PROC NOT COMMUNITY CARRIED OUT HOSPITAL BECAUSE PTS DECN V2509 OT GENERAL 01-09-2008 [facility] CNSL&ADVICE CENTER CONTRACEPT MANAGEMENT V7231 ROUTINE 01-04-2008 [facility] GYNECOLOGIC [facility] AL CENTER EXAMINATION V7389 SPECIAL 01-04-2008 [facility] [place] [place] INC EXAMINATION OTH SPEC VIRAL DZ V745 SCREENING 01-04-2008 [facility] [place] [place] INC FOR VENEREAL DISEASE V748 SCR 01-04-2008 [facility] EXAM[place] OTH SPEC BACTERL&SPI ROCHETAL DZ V758 SCREENING 01-04-2008 [facility] [place] [place] OTH SPEC PARASITIC INFS V762 SCREENING 01-04-2008 [facility] FOR [place] INC MALIGNANT NEOPLASM OF THE CERVIX 31526 WHEEZING 12-24-2007 [facility] 8479 SPRAIN AND 12-24-2007 [facility] UNSPECIFIED CENTER SITE OF BACK 0340 STREPTOCOCC 12-17-2007 [facility] 463 ACUTE 12-17-2007 [facility] TONSILLITIS N EMERGENCY PHYS INC 6930 DERMATITIS 12-17-2007 [facility] DRUGS&MEDIC [facility] CHITRA TAKEN INTERNALLY 03428 UNS ADVRS 12-17-2007 [facility]NS RX N EMERGENCY MEDICINAL&B PHYS INC IOLOGICAL SBSTNC E9478 OTH 12-17-2007 [facility] RX&MEDICINA N EMERGENCY L SBSTNC PHYS INC CAUS ADVRS EFF TX USE Medications Na ND Rx Da Fi Fi Am Da Di Ph RX Ph St me C No te ll ll ou ys ag ar # ys at rm s nt no ma ic us Or Da si cy ia de te s n re d HU 00 02 03 2. 28 00 SE Ac [place] 07 -1 -2 00 00 ND ti RA 44 6- 4- 0 00 ER ve 33 20 20 73 RA 40 90 17 17 66 2 44 RX MG /0 PH .8 AR MA ML CY PE N HU 00 12 03 2. 28 00 SE Ac [place] 07 -2 -0 00 00 ND ti [...] 12 01 4. 28 00 SE Ac [place] 07 -0 -0 00 00 ND ti RA 44 1- 9- 0 00 ER ve 33 20 20 73 RA PE 90 16 17 66 N 7 43 RX PS OR PH IA AR SI MA S- CY UV EI TI S ON 68 08 08 0 12 30 [...] E TA 10 BL 05 ET 91 MA 37 08 08 0 30 30 WA [...] WA 97 TR Ac IT 09 -1 -1 00 LG 47 IM ti HR [...] .[address] ti LO 20 1 00 RE 8 ON ve MA 05 20 20 EN AM 41 11 11 S HE 0 #1 NR HB 20 Y R 75 40 # MG 12 07 TA 5 BL ET MA 37 02 02 3 28 28 WA [...] .0 LG 84 ST ti NE 51 00 RE 0 ON ve X 28 20 20 EN 50 80 11 11 S HE 1 #1 NR MC 20 Y G 75 NA # SA L 12 SP 07 RA 5 Y CI 65 10 10 3 15 30 WA 83 GR Ac TA 16 -2 -2 .0 LG 21 AV ti LO 20 1 00 RE 8 ES ve MA 05 20 20 EN AM 41 10 10 S LE 0 #1 SL HB 20 IE R 75 W 40 # MG 12 07 TA 5 BL ET RA 68 10 10 3 60 30 WA 83 GR Ac NI 46 -2 -2 .0 LG 21 AV ti TI 20 RE 9 ES ve DI 24 20 [...] # TA 12 BL 07 ET 5 MA 64 08 08 3 30 30 WA [...] 1- 7- 00 PH 64 EY ve MA 01 20 20 AR AM 10 09 [...] 1- 9- 00 PH 64 EY ve MA 01 20 20 AR AM 10 09 09 MA GI 5 CY NA HB R 23 40 32 MG TA BL ET MA 00 10 11 00 12 3 CV 29 DA Ac OM 78 -2 -0 .0 S 47 BN ti ET 11 7- 5- 00 PH 39 EY ve BOWDEN 83 20 20 AR ZI 00 09 09 MA GI NE 1 CY NA 25 23 32 MG TA BL ET MCINTOSH 53 [...] 23 MG 32 TA BL ET 00 05 05 00 [...] 23 32 00 03 04 00 30 10 CV 10 No Ac 07 -1 -1 .0 S 45 t ti 46 4- 7- 00 PH 10 Av ve 32 20 20 AR ai 01 08 08 MA la 3 CY bl e 23 32 SK 60 03 04 00 12 30 CV 10 No Ac EL 79 -2 -1 0. S 65 t ti AX 30 0- 7- 00 PH 78 Av ve IN 13 20 20 0 AR ai 60 08 08 MA la 80 1 CY bl 0 e MG 23 32 TA BL ET RA 00 03 04 00 30 30 [...] la 0 CY bl e 23 32 17 03 04 00 17 25 CV [...] la 5 CY bl e 23 32 MA 00 03 04 00 10 7 CV 10 No Ac ED 59 -1 -1 .0 S 45 t ti NI 15 4- 7- 00 PH 09 Av ve SO 44 20 20 AR ai NE 30 08 08 MA la 1 CY bl 20 e 23 MG 32 TA BL ET 59 02 03 00 30 15 CV [...] la 1 CY bl e 23 32 Procedures Procedure [place] [address] [facility] UREA 6 DIAGNOSTI DIAGNOSTI NITROGEN [facility] QUANTITAT MADISON GONADOTRO 17824 [facility] PIN 6 DIAGNOSTI DIAGNOSTI [facility]ORIONIC [facility] QUALITATI VE BLOOD 88611 [facility] COUNT 6 DIAGNOSTI DIAGNOSTI COMPLETE [facility] AUTO&AUTO DIFRNTL WBC COLLECTIO 11302 [facility] OLIVEIRA N VENOUS 6 BLOOD VENIPUNCT URE CREATININ 10510 [facility] E BLOOD 6 DIAGNOSTI DIAGNOSTI CS CS HEPATIC 26898 [facility] FUNCTION 6 DIAGNOSTI DIAGNOSTI PANEL CS CREATININ 79401 [facility] E BLOOD 6 [facility] INC INC COLLECTIO 10498 [facility] N VENOUS 6 [facility] HOSP BLOOD INC INC VENIPUNCT URE BLOOD 96908 [facility] ISMMONS COUNT 6 MEM HOS[facility] MEM HOS[facility] COMPLETE INC INC AUTO&AUTO DIFRNTL WBC GONADOTRO 53389 [facility] PIN 6 MEM HOS[facility] MEM HOS[facility] CHORIONIC [place] [address] [facility] UREA 6 [facility]OS[facility] NITROGEN INC INC QUANTITAT MADISON RADIOLOGI 39355 [place] K[place] ALL C 6 MEDICAL EXAMINATI IMAGING ON CHEST ASS SINGLE VIEW FRONTAL BX SKIN 21752 GRA[facility]ES GRAVES SUBCUTANE 6 LES LES OUS&/MUCO US MEMBRANE 1 LESION GONADOTRO 78537 [facility] PIN 6 DIAGNOSTI DIAGNOSTI CHOR[place] [address] [facility] UREA 6 DIAGNOSTI DIAGNOSTI NITROGEN [place] [address] SCALF LEI SCALF LEI SURG 6 PATHOLOGY GROSS&TY ROSCOPIC EXAM IMHISTOCH 55676 SCALF LEI SCALF LEI EM/CYTCHM 6 1ST ANTIBODY STAIN PROCEDURE BLOOD 13729 [facility] COUNT 6 DIAGNOSTI DIAGNOSTI COMPLETE CS CS AUTO&AUTO DIFRNTL WBC CREATININ 07669 [facility] E BLOOD 6 DIAGNOSTI DIAGNOSTI CS CS HEPATIC 48607 [facility] FUNCTION 6 DIAGNOSTI DIAGNOSTI PANEL CS CS INJECTION J1885 [facility] RACHEL 6 PHYSICIAN TY KETOROLAC S GROUP TROMETHAM INE PER 15 MG INJECTION J1040 [facility] RACHEL 6 PHYSICIAN TY METHYLPRE S GROUP DNISOLONE ACETATE 80 MG THERAPEUT 96363 [facility] RACHEL IC 6 PHYSICIAN TY PROPHYLAC S GROUP TIC/DX INJECTION SUBQ/IM THERAPEUT 63514 [facility] TIM IC 6 PHYSICIAN TY PROPHYLAC S GROUP TIC/DX INJECTION SUBQ/IM INJECTION J1040 [facility] TIM 6 PHYSICIAN TY METHYLPRE S GROUP DNISOLONE ACETATE 80 MG INJECTION J1100 [facility] TIM 6 PHYSICIAN TY DEXAMETHO S GROUP SONE SODIUM PHOSPHATE 1 MG INJECTION J1040 [facility] RACHEL 5 PHYSICIAN TY METHYLPRE S GROUP DNISOLONE ACETATE 80 MG THERAPEUT 93948 [facility] RACHEL IC 5 PHYSICIAN TY PROPHYLAC S GROUP TIC/DX INJECTION SUBQ/IM URETHROCY 06664 [facility] STOGRAPHY 5 [facility] INC INC RETROGRAD E RS&I BLOOD 99537 [facility] COUNT 5 [facility] H[facility] COMPLETE INC INC AUTO&[place] [address] [facility] INFUSION 5 [facility] THER INC INC PROPH ADDL SEQUENTIA L TO 1 HR COMPREHEN 26318 [facility] SIVE 5 [facility] METABOLIC INC INC PANEL INJECTION J0330 [facility] 5 [facility] SUCCINYLC INC INC HOLINE CHLORIDE UP [place] 20 [place] [address] [facility] INFUSION 5 [facility] THERAPY/P INC INC ROPHYLAXI S /DX 1ST TO 1 HR THERAPEUT 76850 [facility] IC 5 [facility] INJECTION INC INC IV PUSH EACH NEW DRUG ANES 96824 [facility] ANESTH SHE FRAGMNTJ OF THE MANJ&/RMV BLUE L URETERAL CALCULUS CYSTOURET 68637 [facility] FIGUEROA JR HROSCOPY 5 [facility] [place] [address] [facility] AMYLASE 5 [facility] [place] [address] [facility] LIPASE 5 [facility] INC INC URNLS DIP 49804 [facility]S 5 [facility] STICK/TAB INC [place] [address] [place] DEON ABDOMEN & 5 MEDICAL BERT PELVIS IMAGING W/[place] [address] [place] ALL ABDOMEN & 5 MEDICAL PELVIS IMAGING W/[place] [address] [place] ALL ABDOMEN & 5 MEDICAL PELVIS IMAGING W/O ASS CONTRAST MATERIAL CULTURE 96197 [facility] BACTERIAL 5 DIAGNOSTI DIAGNOSTI CS CS QUANTTATI VE COLONY COUNT URINE CULTURE 16898 [facility] BCT 5 DIAGNOSTI DIAGNOSTI ISOL&PRSM CS CS PTV ID ISOLATE EA URINE URINLS 89720 A C KILPELA DIP 5 NOAH VIDAL JEA STICK/TAB PSC LET REAGNT NON-AUTO MICRSCPY THER 37751 [facility] PROPH/DX 5 [facility] NJX IV INC INC PUSH SINGLE/1S T SBST/[place] [address] GAR[facility] DEON ABDOMEN & 5 MEDICAL BERT PELVIS IMAGING W/O ASS CONTRAST MATERIAL RADEX 36214 [facility] ANKLE 5 MEDICAL BERT COMPLETE IMAGING MINIMUM 3 ASS VIEWS URINLS 69287 A C FIELD AMB DIP 5 NOAH VIDAL STICK/TAB PSC LET REAGNT NON-AUTO MICRSCPY CULTURE 87448 [facility] BACTERIAL 5 DIAGNOSTI DIAGNOSTI CS CS QUANTTATI VE COLONY COUNT URINE RADEX ABD 57089 DEON DEON COMPL 3 BERT BERT AQT ABD W/S/E/D VIEWS 1 VIEW BLOOD 08793 [facility] COUNT 3 [facility] COMPLETE INC INC AUTO&AUTO DIFRNTL WBC URINE 98237 [facility] 3 [facility] TEST INC INC [place] [address] [facility] LIPASE 3 [facility] INC INC COMPREHEN 07145 [facility] SIVE 3 [facility]OS[facility] METABOLIC INC INC PANEL COMPREHEN 87718 [facility] SIVE 1 [facility]OS[facility] METABOLIC INC INC PANEL BLOOD 38616 [facility] OCCULT 1 [facility] PEROXIDAS INC INC E ACTV QUAL FECES 1-3 SPEC URNLS DIP 45258 [facility]ON 1 [facility] STICK/TAB INC INC LET REAGENT AUTO MICROSCOP Y URINE 73626 [facility]S 1 [facility] TEST INC INC VISUAL COLOR CMPRSN METHS BLOOD 29179 [facility] COUNT 1 [facility]OS[facility] COMPLETE INC INC AUTO&AUTO DIFRNTL WBC ANTIBODY 89271 [facility] HELICOBAC [address] HOLDING HOLDING PYLORI IAADIADOO 50599 [facility] INGRID 1 [facility]ALTH[facility] JOSEP STREPTOCO E CENTER CCUS GROUP A COLLECTIO 21173 [facility] INGRID N VENOUS 1 [facility]ALTHCAR JOSEP BLOOD E CENTER VENIPUNCT URE GENERAL 27875 [facility] HEALTH 1 AMERIC AMERIC PANEL HOLDING HOLDING LIPID 03845 [facility] PANEL 1 AMERIC AMERIC HOLDING HOLDING DETERMINA 42900 [facility] TION 1 EYE CARE CRITICAL ACCESS HOSPITAL REFRACTIV CENTER E STATE OPHTH 22770 [facility] MEDICAL 1 EYE CARE CRITICAL ACCESS HOSPITAL XM&EVAL CENTER COMPRE NEW PT 1/> VST 25 74837 [facility] HYDROXY 1 AMERIC AMERIC INCLUDES HOLDING HOLDING FRACTIONS IF PERFORMED IAADIADOO [id number] [facility] 0 HEALTHCAR LES STREPTOCO E CENTER CCUS GROUP A COLLECTIO 92240 [facility], N VENOUS 0 HEALTHCAR JENS W BLOOD E CENTER VENIPUNCT URE URNLS DIP 26094 [facility], 0 [facility]ALTH[facility] JENS W STICK/TAB E CENTER LET RGNT AUTO W/O MICROSCOP Y GENERAL 32015 [facility] HEALTH 0 AMERIC AMERIC PANEL HOLDING HOLDING LAPAROSCO 11737 HARDEEP MEIER, PY SURG 0 GARY VEGA CHOLECYST ECTOMY ANES 70248 [place] POND, INTRAPERI 0 ANESTHESI NICOLE D TONEAL A GROUP UPPER PSC ABDOMEN W/LAPS NOS LEVEL V 55969 PATHOLOGY PATHOLOGY SURG 0 & & PATHOLOGY CYTOLOGY CYTOLOGY LAB LAB GROSS&TY ROSCOPIC EXAM LEVEL III 39550 PATHOLOGY PATHOLOGY SURG 0 & & PATHOLOGY CYTOLOGY CYTOLOGY LAB LAB GROSS&[place] 92318 HARDEEP MEIER, NDL DONE 0 GARY VEGA PURPOSE TM OTH MAJOR PX SPCL STN 34922 PATHOLOGY PATHOLOGY 2 I&R 0 & & EXCPT CYTOLOGY CYTOLOGY MICROORG/ LAB LAB ENZYME/IM CYT GONADOTRO 94975 [facility] PIN 0 N N [facility] QUALITATI VE COLLECTIO 58579 [facility] N VENOUS 0 N N BLOOD [facility] URE BLOOD 23210 [facility] COUNT 0 N N [facility] AUTO&AUTO HOSPITAL HOSPITAL DIFRNTL WBC COMPREHEN 61908 [facility] SIVE 0 N [place] [address] [facility] AMYLASE 0 N N [facility] HPYLORI 98636 [facility] DRUG 0 N N [facility]MINIST[facility] [place] [place] [address] [facility] LIPASE 0 N N [facility] INJECTION J2805 [facility] [address] [facility] MICROGRAM S HEPATBL 91934 [facility] SHELBIE LYLE, DUX SYS 0 RADIOLOGY BEAU G IMG GLBLDR URNLS DIP 30880 [facility], 0 [facility] JENS W STICK/TAB E CENTER LET RGNT AUTO W/O MICROSCOP Y URNLS DIP 78187 TROY SIMMONS 0 [facility] STICK/TAB INC INC LET REAGENT AUTO MICROSCOP Y URINE 21446 TROY SIMMONS 0 [facility] TEST INC [place] [address] [facility] ABDOMEN 9 N N W/CONTRAS [facility] [address] [facility] [place] BRITTANE[place], ABDOMEN 9 RADIOLOGY J W/O & W/CONTRAS T MATERIAL URINE 58479 [facility] ADRIANA, 9 [facility] TEST E CENTER VISUAL COLOR CMPRSN [place] URNLS DIP 00686 [facility] ADRIANA, 9 [facility] ALVINO STICK/TAB E CENTER LET RGNT AUTO [place] [address] [facility] RETROPERI 9 N N TONEAL [facility] W/IMAGE COMPLETE US PELVIC 68678 [facility] 9 N N NONOBSTET [facility] REAL-TIME IMAGE COMPLETE COLLECTIO 27000 [facility] N VENOUS 9 N N BLOOD [facility] URE BLOOD [address] [facility] COUNT 9 N N COMPLETE [facility] AUTO&AUTO [facility] [place] [address] [facility] AMYLASE 9 N N [facility] INJECTION [id number] [facility] 9 N N HYDROMORP [facility] TO 4 MG INJECTION [id number] [facility] 9 N N ONDANSETR [facility] PER 1 MG COMPREHEN 18826 [facility] SIVE 9 N N [facility] URINE 20317 [facility] 9 N N TEST [facility] COLOR CMPRSN METHS URNLS DIP 22785 [facility] 9 N N STICK/TAB [facility] REAGENT AUTO MICROSCOP Y URINALYSI 00696 [facility] S 9 N N MICROSCOP [facility] [place] [address] [facility] LIPASE 9 N N [facility] ETONOGEST J7307 [facility] JR, REL 9 N DORINA L CNTRACPT OBSTETRIC IMPL SYS S AND INCL IMPL GYNECOLOG & SPL Y BLOOD 22879 [facility] COUNT 9 [facility] COMPLETE AUTO&AUTO DIFRNTL WBC GONADOTRO 64703 [facility] PIN 9 [facility] [place] [address] [facility], TRANSVAGI 9 N DORINA L NAL OBSTETRIC S AND GYNECOLOG Y INSERTION 12613 [facility], 9 N DORINA L IMPLANTAB OBSTETRIC LE S AND CONTRACEP GYNECOLOG TIVE Y CAPSULES CULTURE 56741 [facility] BACTERIAL 9 [facility] QUANTTATI VE COLONY COUNT URINE GONADOTRO 26347 [facility] PIN 9 [facility] CHORIONIC QUANTITAT [place] GONADOTRO 58615 [facility] PIN 9 N N CHORIONIC [facility] [place] [address] [facility], TRANSVAGI 9 N DORINA L NAL OBSTETRIC S AND GYNECOLOG Y COLLECTIO 38620 [facility] N VENOUS 9 N N BLOOD [facility] [place] [address] [facility] [place], ABDOMEN 9 RADIOLOGY J W/[place] [address] CN[facility], TRANSVAGI [address] [place] [address] [facility] [place], W/O 9 RADIOLOGY J CONTRAST MATERIAL URNLS DIP 69169 JAZMÍN NOYOLA, 9 ROSA ROSA STICK/TAB K K LET RGNT NON-AUTO W/O MICRSCP GUY 84699 JAZMÍN NOYOLA, POST-VOID 9 ROSA ROSA ING K K RESIDUAL URINE&/BL ADDER CAP URNLS DIP 42654 HORIZON KLEBER, 9 [facility] STICK/TAB E CENTER LET RGNT AUTO W/O MICROSCOP Y GENERAL 91277 [facility] 9 [facility]IC [facility] PANEL HOLDING HOLDING LIPID 80281 [facility] PANEL 9 [employer] HOLDING HEMOGLOBI 80597 [facility] N 9 AMERIC AMERIC GLYCOSYLA HOLDING [place] [address] [facility] TESTOSTER 9 AMERIC AMERIC ONE TOTAL HOLDING HOLDING COLLECTIO 54148 HORIZON KLEBER, N VENOUS 9 [facility] [place] [address] [facility] [place] VAL[place], ABDOMEN 8 RADIOLOGY BEAU G W/O CONTRAST MATERIAL CT PELVIS 01210 [facility] [place], W/O 8 RADIOLOGY BEAU G CONTRAST MATERIAL URINE 65011 HORIZON KLEBER, 8 [facility] TEST E CENTER VISUAL COLOR CMPRSN METHS URINE 68163 H[facility]IZON KLEBER, 8 [facility] TEST [facility] CENTER VISUAL COLOR CMPRSN METHS IADNA 44367 [facility] KG, STREPTOCO 8 [place] INC BEBO E CCUS GROUP B AMPLIFIED PROBE TQ IADNA 47948 [facility] TRICHOMON 8 [facility] INC INC VAGINALIS DIRECT PROBE TQ CYTP 79100 [facility] KG, CERV/VAG 8 [place] BE[place] E AUTO THIN LAYER PREP MNL SCREEN IADNA 01776 [facility] KG, HERPES 8 [place] E SOMPLX VIRUS AMPLIFIED PROBE TQ IADNA 68834 [facility] KG, NEISSERIA 8 [place] INC BEBO E GONORRHOE AE AMPLIFIED PROBE TQ URNLS DIP 24822 [facility]IZ[facility] KLEBER, 8 [facility] STICK/TAB E CENTER LET RGNT AUTO W/[place] [address] [facility] STREPTOCO 8 N N CCUS [facility] CUL BACT 08168 [facility] XCPT 8 N N URINE [facility] AEROBIC ISOL COLLECTIO 87536 [facility] N VENOUS 8 N N BLOOD [facility] [place] Encounters Encounter Start End Date Code Location Performer Type Date OFFICE 54136 [facility] TIM OUTPATIEN 6 6 PHYSICIAN T VISIT S GROUP 25 MINUTES OFFICE 49171 [facility] OLIVEIRA OUTPATIEN 6 6 T VISIT 25 MINUTES OFFICE 97989 [facility]OX[facility]NE OLIVEIRA OUTPATIEN 6 6 T VISIT 25 MINUTES [facility] TROY - 6 6 [facility] INC T OFFICE 96341 [facility] T VISIT 5 TH DEPT TH DEPT MINUTES [facility] OFFICE 67895 GRAVES GRAVES CONSULTAT 6 6 LES LES ION NEW/ESTAB PATIENT 40 MIN OFFICE 06191 [facility] RACHEL OUTPATIADAM 6 6 PHYSICIAN TY T VISIT S GROUP 15 MINUTES EMERGENCY 89348 OG DUMONT 6 6 PHYSICIAN TY DEPARTMEN S, PLLC T VISIT MODERATE SEVERITY OFFICE 86505 [facility] TIM OUTPATIEN 6 6 PHYSICIAN TY T NEW 20 S GROUP MINUTES OFFICE 46991 [facility] RACHEL OUTPATIEN 5 5 PHYSICIAN TY T VISIT S GROUP 15 MINUTES HOSPITAL TROY - 5 5 [facility] OUTPATIEN INC T EMERGENCY 17895 OG HALL 5 5 PHYSICIAN U MEGAN DEPARTMEN S, PLLC T VISIT HIGH/URGE NT SEVERITY EMERGENCY 41369 GO DUMONT 5 5 PHYSICIAN TY DEPARTMEN S, PLLC T VISIT MODERATE SEVERITY EMERGENCY 96153 OG PAGE 5 5 PHYSICIAN DEPARTMEN S, PLLC T VISIT HIGH/URGE NT SEVERITY OFFICE 78834 [facility] YODER OUTSISSY 5 5 PHYSICIAN GINGER T NEW S GROUP MINUTES OFFICE 89197 TROY REILLY 5 5 [facility] T VISIT HOSPITAL 10 MINUTES EMERGENCY 75973 OG DUMONT 5 5 PHYSICIAN TY DEPARTMEN S, PLLC T VISIT MODERATE SEVERITY OFFICE 49235 TROY REILLY 5 5 [facility] T VISIT HOSPITAL 15 MINUTES EMERGENCY 63703 OG DUMONT DEPT 5 5 PHYSICIAN TY VISIT S, PLLC HIGH SEVERITY& THREAT FUNCJ EMERGENCY 90722 OG DUMONT 5 5 PHYSICIAN TY DEPARTMEN S, PLLC T VISIT HIGH/URGE NT SEVERITY EMERGENCY 10000 OG Thompson 5 5 PHYSICIAN DEPARTMEN S, PLLC T VISIT HIGH/URGE NT SEVERITY OFFICE 17965 TROY REILLY 5 5 [facility] 20 HOSPITAL MINUTES P OFFICE 47302 Sofiya REILLY 5 5 ONAH GUZMAN T VISIT [facility] 15 MINUTES HOSPITAL TROY - 5 5 [facility] OUTPATIEN INC T EMERGENCY 07109 TROY Thompson 5 5 [facility] T VISIT P MODERATE SEVERITY HOSPITAL TROY - 5 5 [facility] OUTPATIEN INC T OFFICE 08278 A C FIELD AMB OUTPATIEN 5 5 NOAH VIDAL T VISIT PSC 15 MINUTES OFFICE 75015 A C FIELD AMB OUTPATIEN 5 5 NOAH VIDAL T VISIT PSC 15 MINUTES OFFICE 48596 [facility] PETTEY OUTPATIEN 4 4 PHYSICIAN JAM T VISIT S GROUP 15 MINUTES OFFICE 80285 TIM TIM OUTPATIEN 4 4 TY TY T VISIT 15 MINUTES OFFICE 86524 MORGAN ELICIA MORGAN ELICIA OUTPATIEN 4 4 T NEW 30 MINUTES OFFICE 77201 ARNOLD ARNOLD OUTPATIEN 3 3 ED ED T VISIT 15 MINUTES OFFICE 81332 SHARON SHELL OUTPATIEN 3 3 T VISIT 15 MINUTES OFFICE 75924 [facility] OUTPATIEN 3 3 PHYSICIAN T VISIT S GROUP 15 MINUTES HOSPITAL TROY - 3 3 [facility] OUTPATIEN INC T EMERGENCY 50507 TROY 3 3 [facility] DEPARTMEN INC T VISIT LOW/MODER SEVERITY EMERGENCY 03398 SO RIZZO DEPT 3 3 III KRISTINA III KRISTINA VISIT HIGH SEVERITY& THREAT [facility] OFFICE 01765 MAYI MAYI OUTPATIEN 2 2 JASON JASON T VISIT 15 MINUTES EMERGENCY 73950 TROY 1 1 [facility] DEPARTMEN INC T VISIT MODERATE SEVERITY EMERGENCY 43852 BORIS RIZZO DEPT 1 1 EMERGENCY III KRISTINA VISIT SERVICES HIGH SEVERITY& THREAT [facility] TROY - 1 1 [facility] OUTPATIEN INC T OFFICE 66170 HORIZON INGRID OUTPATIEN 1 1 [facility] JOSEP T VISIT E CENTER 15 MINUTES OFFICE 37624 HORIZON INGRID OUTPATIEN 1 1 [facility] JO[facility]P T VISIT E CENTER 15 MINUTES OFFICE 89202 HORIZON SALONI OUTPATIEN 1 1 [facility] HEN T VISIT E CENTER 15 MINUTES OFFICE 16072 HORIZON INGRID OUTPATIEN 1 1 [facility] JOSEP T VISIT E CENTER 15 MINUTES OFFICE 88121 HORIZON GRAVES OUTPATIEN 0 0 [facility] LES T VISIT E CENTER 15 MINUTES OFFICE 06954 HORIZON GRAVES OUTPATIEN 0 0 [facility] LES T VISIT E CENTER 15 MINUTES OFFICE 93583 HORIZON GRAVES, OUTPATIEN 0 0 [facility] JENS W T VISIT E CENTER 15 MINUTES HOSPITAL [facility] - 0 0 N [facility] HOSPITAL OFFICE 20999 HARDEEP, HARDEEP, CONSULTAT 0 0 GARY VEGA ION NEW/ESTAB PATIENT 80 MIN [facility]OSPITAL [facility] - 0 0 N OUTPATIGENERAL [facility]UTE [facility]ITAL HOSPITAL OFFICE 16773 HORIZON GRAVES, OUTPATIEN 0 0 [facility] W T VISIT E CENTER 15 MINUTES OFFICE 74696 HORIZON GRAVES, OUTPATIEN 0 0 [facility] J[facility] W T VISIT E CENTER 15 MINUTES EMERGENCY 44687 TROY 0 0 [facility] DEPARTMEN INC T VISIT LOW/MODER SEVERITY HOSPITAL TROY - 0 0 [facility] OUTPATIEN INC T EMERGENCY 07917 BORIS WEINER, 0 0 EMERGENCY MARGARITA DEPARTMEN SERVICES O T VISIT HIGH/URGE ASSOCIATE NT S SEVERITY OFFICE 18926 H[facility]IZON SHETH, OUTPATIEN 0 0 [facility] LILIANA M T VISIT E CENTER 15 MINUTES [facility]OSP[facility] - 9 9 N OUTPATIEN [facility] HOSPITAL OFFICE 61148 [facility] 9 9 [facility] T VISIT E CENTER 15 MINUTES [facility] - 9 9 N [facility]OSP[facility] OFFICE 54571 [facility] 9 9 [facility]ER[facility] DE OLIVEIRA T VISIT E CENTER 15 MINUTES EMERGENCY 33075 BORIS GRACIA 9 9 EMERGENCY [facility] T VISIT HIGH/URGE NT SEVERITY [facility]OS[facility] - 9 9 N [facility] HOSPITAL EMERGENCY 29428 [facility] 9 9 N [facility] T VISIT HOSPITAL MODERATE SEVERITY OFFICE 58921 [facility] 9 9 N DORINA L T VISIT OBSTETRIC 10 S AND MINUTES GYNECOLOG Y HOSPITAL [facility] - 9 9 N [facility]OSPITAL OFFICE 25459 [facility] 9 9 N DORINA L T NEW 45 OBSTETRIC MINUTES S AND GYNECOLOG Y EMERGENCY 85112 DARIO ECHOLS, DEPT 9 9 DIAN Olivier VISIT EMERGENCY HIGH PHYS INC SEVERITY& THREAT FUN OFFICE 41620 WINDISCH, WINDISCH, CONSULTAT 9 9 ROSA ROSA ION K K NEW/ESTAB PATIENT 40 MIN OFFICE 75026 [facility] 9 9 [facility] 15 MINUTES EMERGENCY 07895 [facility] 8 8 N [facility] T VISIT HOSPITAL LIMITED/M INOR PROB [facility] - 8 8 N [facility] HOSPITAL EMERGENCY 90059 DARIO ECHOLS, 8 8 DIAN Olivier [facility] EMERGENCY T VISIT PHYS INC MODERATE SEVERITY EMERGENCY 82269 [facility], 8 8 DIAN HERNAN [facility] EMERGENCY A T VISIT PHYS INC HIGH/URGE NT SEVERITY OFFICE 51212 TOMMIE VILLAGRAN 8 8 [facility] T VISIT E CENTER 10 MINUTES PERIODIC 42434 BENOIT VILLAGRAN 8 8 [facility] E MED EST E CENTER PATIENT 18-39 YRS OFFICE 33217 TOMMIE VILLAGRAN 8 8 [facility] T VISIT E CENTER 15 MINUTES EMERGENCY 23145 [facility], DEPT 8 8 DIAN BECERRA VISIT EMERGENCY A HIGH PHYS INC SEVERITY& THREAT [facility] - 8 8 N [facility] HOSPITAL EMERGENCY 24028 [facility] 8 8 N [facility] T VISIT HOSPITAL MODERATE SEVERITY OFFICE 82555 TOMMIE VILLAGRAN 8 8 [facility] T VISIT E CENTER 15 MINUTES
--- OUTSIDE RECORDS SUMMARY | 2017-05-17 18:52 | External Medical Summary Rpt ---
Author Author , JED ADKINS Address Unknown Phone [email or web address] Care Team Providers Care Condenser Tester Name Role Phone A Leslie ZAMORA MD PSC, Sofiya Unavailable Unavailable Leslie ZAMORA MD PSC VIKA SINCLAIR, VIKA Unavailable Unavailable [facility] Unavailable Unavailable CENTER, [facility] AHMED, BECERRA A, Unavailable Unavailable AHMED, BECERRA A [facility] [place] Unavailable Unavailable INC, [facility] Anshul QUISPE, Unavailable Unavailable Anshul QUISPE ED, SOCRATES Unavailable Unavailable ED GABRIELLE LEIVA Unavailable Unavailable KAPOOR ALL, KAPOOR ALL Unavailable Unavailable OLIVEIRA, OLIVEIRA Unavailable Unavailable OLIVEIRA, OLIVEIRA Unavailable Unavailable SHARON SUMAYA, SHARON SUMAYA Unavailable Unavailable CAROLINA JR KRISTINA, CAROLINA Unavailable Unavailable JR KRISTINA DEON BERT, Unavailable Unavailable DEON BERT DEON BERT, Unavailable Unavailable DEON BERT [facility] # [id number], Unavailable Unavailable [facility] # [id number] [facility], Unavailable Unavailable [facility] 2332 KLEBER, WILLIAMS, KLEBER, Unavailable Unavailable WILLIAMS RACHEL TY, RACHEL Unavailable Unavailable TY GARY MEIER, Unavailable Unavailable GARY MEIER MAYI JASON, Unavailable Unavailable MAYI JASON FIELD AMB, FIELD AMB Unavailable Unavailable TIM, TIM Unavailable Unavailable TIM TY, TIM Unavailable Unavailable TY TIM TY, TIM Unavailable Unavailable TY [facility] Unavailable Unavailable [facility] GRAVES LES, GRAVES Unavailable Unavailable LES GRAVES LES, GRAVES Unavailable Unavailable LES GRAVES, JENS W, Unavailable Unavailable GRAVES, JENS W VALDO, BEAU G, Unavailable Unavailable VALDO, BEAU G HABASH KEF, HABASH Unavailable Unavailable KEF [facility] Unavailable Unavailable INC, [facility] Unavailable Unavailable [facility], [facility] HIGH JRDORINA L, Unavailable Unavailable HIGH JR DORINA L [facility], Unavailable Unavailable [facility] Unavailable Unavailable [address], [facility] Unavailable Unavailable [facility], [facility] KILPELA JEA, KILPELA Unavailable Unavailable JEA [facility] Unavailable Unavailable HOLD[facility], [facility] Unavailable Unavailable [facility]ING, [facility], Unavailable Unavailable [facility] YODER GINGER, YODER Unavailable Unavailable GING[facility] Unavailable Unavailable SERVICES, [facility] MORGAN ELICIA, MORGAN ELICIA Unavailable Unavailable MORGAN ELICIA, MORGAN ELICIA Unavailable Unavailable [facility], Unavailable [facility]available [facility], [facility] Unavailable Unavailable LAB, [facility] PETTEY JAM, PETTEY Unavailable Unavailable JAM SALONI HEN, SALONI Unavailable Unavailable HEN [facility], Unavailable Unavailable [facility], Unavailable Unavailable [facility] Unavailable Unavailable [id number] # [id number], [facility] [id number] # [id number] SADEK MOH, SADEK MOH Unavailable Unavailable SADEK, MOHAMED H, Unavailable Unavailable SADEK, MOHAMED H GRACIA EASLEY, GRACIA Unavailable Unavailable EASLEY SCALF LEI, SCALF LEI Unavailable Unavailable SCALF LEI, SCALF LEI Unavailable Unavailable ADRIANAALVINO Marin, ADRIANA, Unavailable Unavailable NICOLE ZUÑIGA, Unavailable Unavailable NICOLE POND SOKAN, MARGARITA O, Unavailable Unavailable SOKAN, MARGARITA O SOTINGEANU MEGAN, Unavailable Unavailable SOTINGEANU MEGAN JENNIFER NORRIS, Unavailable Unavailable BEBO KRISHNA, Unavailable Unavailable BEBO SAUL LYNN M, Unavailable Unavailable LILIANA SHETH INGRID JOSEP, INGRID Unavailable Unavailable JOSEP [facility] # Unavailable Unavailable [id number], [facility] # [id number] [id number] # Unavailable Unavailable [id number], [facility][id number] # [id number] [facility] Unavailable Unavailable [facility]PT [facility], [facility] Unavailable Unavailable [facility]PT [facility] WEHRMAN III KRISTINA, Unavailable Unavailable WEHRMAN III KRISTINA WEHRMAN III KRISTINA, Unavailable Unavailable WEHRMAN III ROSA MURRAY, Unavailable Unavailable ROSA NOYOLA Purpose Continuity of Care Document - 11-21-2007 through 2016 Problems Code Diagnosis DOS Provider Status L409 PSORIASIS 08-19-2016 [facility] M2550 PAIN IN 08-19-2016 [facility] UNS[facility]ANS JOINT GROUP L400 PSORIASIS 08-12-2016 OLIVEIRA VULGARIS [id number] OTHER LONG 08-12-2016 OLIVEIRA TERM CURRENT DRUG THERAPY L408 OTHER 07-09-2016 [facility] L578 OT SKN 07-09-2016 OLIVEIRA CHANGES D/T CHRN EXPS TO NONIONIZING RAD Z111 ENCOUNTER 05-20-2016 [facility] S[facility] DEPT RESPIRATORY CLIFF TUBERCULOSI S 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 L298 OTHER 02-19-2016 GRAVES LES PRURITUS L853 XEROSIS 02-19-2016 GRA[facility] LES CUTIS [id number] MIGRAINE 12-21-2015 [facility] UNS NOT PHYSICIANS INTRACT W/O GROUP STATUS MIGRAINOSUS J209 ACUTE 12-21-2015 [facility] BRONCHITIS PHYSICIANS UNSPECIFIED GROUP R112 NAUSEA WITH 12-21-2015 [facility] VOMITING PHYSICIANS UNSPECIFIED GROUP R51 HEADACHE 12-15-2015 [facility] 5920 CALCULUS OF 06-15-2015 [facility] 5921 CALCULUS OF 06-15-2015 [facility] 87196 ABDOMINAL 06-13-2015 [place] PAIN OTHER MEDICAL SPECIFIED IMAGING ASS SITE 5589 OTH&UNSPEC 06-12-2015 [facility] NONINFECTIO [facility] PLL GASTROENTER ITIS&COLITI S 6202 OTHER AND 06-10-2015 [place] UNSPECIFIED MEDICAL OVARIAN IMAGING ASS CYST 11780 VOMITING 06-10-2015 [place] [facility] 91266 UNSPECIFIED 06-05-2015 [facility] INFECTIVE PHYSICIANS OTITIS GROUP EXTERNA 4779 ALLERGIC 06-05-2015 [facility] RHINITIS PHYSICIANS CAUSE GROUP UNSPECIFIED 41300 ACUT 05-31-2015 [facility] MEDIA W/SPONT RUP EARDRUM 08324 ACUT 05-03-2015 [facility] OTITIS [facility] MEDIA W/O SPONT RUP EARDRUM 5990 URINARY 05-03-2015 [facility] INFECTION [facility] SITE NOT SPECIFIED 591 HYDRONEPHRO 02-26-2015 [place] [facility]IS [facility] 53396 ABDOMINAL 02-26-2015 [facility], MEDICAL UNSPECIFIED IMAGING ASS SITE 5935 HYDROURETER 02-25-2015 [facility] 7880 RENAL COLIC 02-25-2015 [facility] 41605 ESOPHAGEAL 02-02-2015 A Leslie ZAMORA REFLUX [facility] 7245 UNSPECIFIED 02-02-2015 A Leslie ZAMORA BACKACHE [facility] 7881 DYSURIA 02-02-2015 [facility] 96688 HEMATURIA 01-12-2015 [place] [facility] 4659 ACUTE URIS 11-01-2014 A Leslie SANCHEZ [facility] UNSPECIFIED SITE 36885 PAIN IN 11-01-2014 [place] JOINT, MEDICAL ANKLE AND IMAGING ASS FOOT 3804 IMPACTED 10-10-2014 A Leslie WARD MD [facility] 94465 ACHILLES 08-30-2014 [facility] BURSITIS OR PHYSICIANS TENDINITIS GROUP 62420 OTHER ANKLE 08-30-2014 [facility] SPRAIN AND PHYSICIANS STRAIN GROUP 4619 ACUTE 05-26-2014 TIM TY SINUSITIS, UNSPECIFIED 4770 ALLERGIC 03-29-2014 MORGAN ELICIA RHINITIS DUE TO POLLEN 7804 DIZZINESS 03-29-2014 MORGAN ELICIA AND GIDDINESS 00524 DIARRHEA 10-16-2012 [facility] 94590 ABDOMINAL 10-16-2012 WEHRMAN III PAIN, KRISTINA EPIGASTRIC V4589 OTHER 10-16-2012 DEON POSTSURGICA BERT L STATUS OTHER 69002 NAUSEA WITH 05-23-2011 [facility] 80082 NAUSEA 05-23-2011 [facility] EMERGENCY SERVICES 462 ACUTE 01-04-2011 [facility] PHARYNGITIS [facility]ALTH[facility]ARE CENTER 7862 COUGH 01-04-2011 [facility] 72316 UNSPECIFIED 11-16-2010 [facility] SEBORRHEIC [facility] DERMATITIS CENTER 3671 MYOPIA 11-08-2010 [facility] 44075 REGULAR 11-08-2010 [facility] 32970 OTHER 11-08-2010 [facility] [employer] [facility] 7836 POLYPHAGIA 11-08-2010 [facility] 68868 OTHER 11-06-2010 [facility] ABNORMAL [facility] GLUCOSE CENTER 7835 POLYDIPSIA 10-31-2010 [facility] V703 OTH GENERAL 10-31-2010 [facility] MEDICAL [facility] EXAMINATION CENTER ADMIN PURPOSES 79447 MIGRAINE 07-26-2010 [facility] UNSP W/O HEALTHCARE INTRACT W/O CENTER STATUS MIGRAINOSUS 7823 EDEMA 05-21-2010 [facility] 84029 UNSPECIFIED 02-06-2010 PATHOLOGY & CHRONIC CYTOLOGY HEPATITIS LAB 5718 OTHER 02-06-2010 GURJIT MEIER NONALCOHOLI C LIVER DISEASE 70905 CHOLECYSTIT 02-06-2010 [place] IS, ANESTHESIA UNSPECIFIED GROUP PSC 68082 CHRONIC 02-06-2010 PATHOLOGY & CHOLECYSTIT CYTOLOGY IS LAB 5756 CHOLESTEROL 02-06-2010 HARDEEP, OSIS OF GARY GALLBLADDER 5758 OTHER 01-31-2010 HARDEEP, SPECIFIED GARY DISORDER OF GALLBLADDER V7283 OTHER 01-31-2010 [facility] PRE-OPERATI HOSPITAL VE EXAMINATION 68733 ABDOMINAL 01-25-2010 [facility] [place] PAIN RIGHT RADIOLOGY UPPER QUADRANT 13415 ABDOMINAL 01-25-2010 [place] TENDERNESS [facility] RIGHT UPPER HOSPITAL QUADRANT 6269 UNS D/O 01-23-2010 [facility] MENSTRUATIO [facility] N&OTH ABN CENTER BLEED FE GNT TRACT 7242 LUMBAGO 01-23-2010 [facility] CENTER 32948 UNSPECIFIED 01-09-2010 [facility] CONSTIPATIO CENTER N 9953 ALLERGY 12-25-2009 [facility] NOT CENTER ELSEWHERE CLASSIFIED 44724 CALCU 07-21-2009 [facility] W/O MENTION SERVICES CHOLECYST/O BST 6259 UNSPEC 03-23-2009 [place] [facility] AND W/FEMALE GYNECOLOGY GENITAL ORGANS V255 INSERTION 03-23-2009 [place] OF OBSTETRICS IMPLANTABLE [place] [address] COMPLETE 03-17-2009 [place] SPONTANEOUS OBSTETRICS AB WITHOUT AND MENTION GYNECOLOGY COMP 6268 OT D/O 02-17-2009 [place] MENSTRUATIO [facility] N&OTH [facility] BLEED FE GNT TRACT 632 MISSED 02-17-2009 [place] OBSTETRICS AND GYNECOLOGY 6200 FOLLICULAR 02-15-2009 [facility] [place] CYST OF RADIOLOGY OVARY 77981 URGENCY OF 10-18-2008 JAZMÍN, URINATION ROSA K V1301 PERSONAL 10-18-2008 JAZMÍN, HISTORY OF ROSA K URINARY CALCULI V1302 PERSONAL 10-18-2008 JAZMÍN, HISTORY OF ROSA K URINARY TRACT INFECTION 7041 HIRSUTISM 10-10-2008 [facility] 43817 POLYURIA 10-10-2008 [facility] 7821 RASH AND 08-29-2008 [place] OTHER [facility] NONSPECIFIC HOSPITAL SKIN ERUPTION V642 SURG/OTH 08-29-2008 [place] PROC NOT COMMUNITY CARRIED OUT HOSPITAL BECAUSE PTS DECN V2509 OT GENERAL 01-09-2008 [facility] CNSL&ADVICE CENTER CONTRACEPT MANAGEMENT V7231 ROUTINE 01-04-2008 [facility] GYNECOLOGIC [facility] AL CENTER EXAMINATION V7389 SPECIAL 01-04-2008 [facility] SCREENING [place] INC EXAMINATION OTH SPEC VIRAL DZ V745 SCREENING 01-04-2008 [facility] EX[facility] [place] INC FOR VENEREAL DISEASE V748 SCR 01-04-2008 [facility] EXAM[facility] [place] OTH SPEC BACTERL&SPI ROCHETAL DZ V758 SCREENING 01-04-2008 [facility] [place] OTH SPEC PARASITIC INFS V762 SCREENING 01-04-2008 [facility] FOR [place] INC MALIGNANT NEOPLASM OF THE CERVIX 80386 WHEEZING 12-24-2007 [facility] 8479 SPRAIN AND 12-24-2007 [facility] U[facility] C[facility] SITE OF BACK 0340 STREPTOCOCC 12-17-2007 [facility] 463 ACUTE 12-17-2007 [facility] TONSILLITIS N EMERGENCY PHYS INC 6930 DERMATITIS 12-17-2007 [facility] DRUGS&MEDIC [facility] CHITRA TAKEN INTERNALLY 40051 UNS ADVRS 12-17-2007 [facility] UNS RX [...] 02 03 2. 28 00 SE Ac AL 07 -1 -2 00 00 ND ti RA 44 6- 4- 0 00 ER ve 33 20 20 73 RA 40 90 17 17 66 2 44 RX MG /0 PH .8 AR MA ML CY PE N HU 00 12 03 2. 28 00 SE Ac AL 07 -2 -0 00 00 ND ti [...] 12 01 4. 28 00 SE Ac AL 07 -0 -0 00 00 ND ti [...] E TA 10 BL 05 ET 91 NE 37 08 08 0 30 30 WA [...] 20 1 00 RE 8 ON ve NE 05 20 20 EN AM 41 11 11 S HE 0 #1 NR HB 20 Y R 75 40 # MG 12 07 TA 5 BL ET NE 37 02 02 3 28 28 WA [...] 20 1 00 RE 8 ES ve NE 05 20 20 EN AM 41 10 [...] # TA 12 BL 07 ET 5 NE 64 08 08 3 30 30 WA [...] 1- 7- 00 PH 64 EY ve NE 01 20 20 AR AM 10 09 [...] 1- 9- 00 PH 64 EY ve NE 01 20 20 AR AM 10 09 09 MA GI 5 CY NA HB R 23 40 32 MG TA BL ET NE 00 10 11 00 12 3 CV [...] la 5 CY bl e 23 32 NE 00 03 04 00 10 7 CV [...] [place] [address] [facility] UREA 6 DIAGNOSTI DIAGNOSTI NITROGEN [facility] QUANTITAT MADISON GONADOTRO 37882 [facility] PIN 6 DIAGNOSTI DIAGNOSTI CHORIONIC [facility] QUALITATI VE BLOOD 72040 [facility] COUNT 6 DIAGNOSTI DIAGNOSTI COMPLETE [facility] AUTO&AUTO DIFRNTL WBC COLLECTIO 43852 OLIVE[facility]A OLIVEIRA N VENOUS 6 BLOOD VENIPUNCT URE CREATININ 00665 [facility] E BLOOD 6 DIAGNOSTI DIAGNOSTI CS CS HEPATIC 08355 [facility] FUNCTION 6 DIAGNOSTI DIAGNOSTI PANEL CS CREATININ 38866 [facility] E BLOOD 6 [facility] INC INC COLLECTIO 08765 [facility] N VENOUS 6 [facility]OS[facility] BLOOD INC INC VENIPUNCT URE BLOOD 10959 [facility] COUNT 6 [facility]OS[facility] COMPLETE INC INC AUTO&AUTO DIFRNTL WBC GONADOTRO 01186 [facility] PIN 6 MEM HOSP MEM HOSP CHORIONIC [place] [address] [facility] UREA 6 [facility]OS[facility] NITROGEN INC INC QUANTITAT [place]ADISON RADIOLOGI 22464 [place] [facility] C 6 MEDICAL EXAMINATI IMAGING ON CHEST ASS SINGLE VIEW FRONTAL BX SKIN 08204 GRAVES GRAVES SUBCUTANE 6 LES LES OUS&/MUCO US MEMBRANE 1 LESION GONADOTRO 12634 [facility] PIN 6 DIAGNOSTI DIAGNOSTI CH[place] [address] [facility] UREA 6 DIAGNOSTI DIAGNOSTI NITROGEN [place] [address] SCALF LEI SCALF LEI SURG 6 PATHOLOGY GROSS&TY ROSCOPIC EXAM IMHISTOCH 55587 SCALF LEI SCALF LEI EM/CYTCHM 6 1ST ANTIBODY STAIN PROCEDURE BLOOD 95709 [facility] COUNT 6 DIAGNOSTI DIAGNOSTI COMPLETE CS CS AUTO&AUTO DIFRNTL WBC CREATININ 73773 [facility] E BLOOD 6 DIAGNOSTI DIAGNOSTI CS CS HEPATIC 68091 [facility] FUNCTION 6 DIAGNOSTI DIAGNOSTI PANEL CS CS INJECTION J1885 [facility] RACHEL 6 PHYSICIAN TY KETOROLAC S GROUP TROMETHAM INE PER 15 MG INJECTION J1040 [facility] RACHEL 6 PHYSICIAN YT METHYLPRE S GROUP DNISOLONE ACETATE 80 MG THERAPEUT 60261 [facility] RACHEL IC 6 PHYSICIAN TY PROPHYLAC S GROUP TIC/DX INJECTION SUBQ/IM THERAPEUT 79985 [facility] TIM IC 6 PHYSICIAN TY PROPHYLAC S GROUP TIC/DX INJECTION SUBQ/IM INJECTION J1040 [facility] TIM 6 PHYSICIAN TY METHYLPRE S GROUP DNISOLONE ACETATE 80 MG INJECTION J1100 [facility] TIM 6 PHYSICIAN TY DEXAMETHO S GROUP SONE SODIUM PHOSPHATE 1 MG INJECTION J1040 [facility] RACHEL 5 PHYSICIAN TY METHYLPRE S GROUP DNISOLONE ACETATE 80 MG THERAPEUT 98438 [facility] RACHEL IC 5 PHYSICIAN TY PROPHYLAC S GROUP TIC/DX INJECTION SUBQ/IM URETHROCY 72034 [facility] STOGRAPHY 5 [facility] INC INC RETROGRAD E RS&I BLOOD 76016 [facility] COUNT 5 [facility] COMPLETE INC INC AUTO&[place] [address] [facility] INFUSION 5 [facility] THER INC INC PROPH ADDL SEQUENTIA L TO 1 HR COMPREHEN 88596 [facility] SIVE 5 [facility] METABOLIC INC INC PANEL INJECTION J0330 [facility] 5 [facility] SUCCINYLC INC INC HOLINE CHLORIDE UP TO 20 [place] [address] [facility] INFUSION 5 [facility] THERAPY/P INC INC ROPHYLAXI S /DX 1ST TO 1 HR THERAPEUT 13982 [facility] IC 5 [facility] INJECTION INC INC IV PUSH EACH NEW DRUG ANES 33975 [facility] ANESTH SHE FRAGMNTJ OF THE MANJ&/RMV BLUE L URETERAL CALCULUS CYSTOURET 08563 [facility] FIGUEROA JR HROSCOPY 5 [facility] [place] [address] [facility] AMYLASE 5 [facility] [place] [address] [facility] LIPASE 5 [facility] INC INC URNLS DIP 71486 [facility] 5 [facility] STICK/TAB INC [place] [address] [place] DEON ABDOMEN & 5 MEDICAL BERT PELVIS IMAGING W/[place] [address] [place] ALL ABDOMEN & 5 MEDICAL PELVIS IMAGING W/[place] [address] [place] [facility] ABDOMEN & 5 MEDICAL PELVIS IMAGING W/O ASS CONTRAST MATERIAL CULTURE 01317 [facility] BACTERIAL 5 DIAGNOSTI DIAGNOSTI CS CS QUANTTATI VE COLONY COUNT URINE CULTURE 10425 [facility] BCT 5 DIAGNOSTI DIAGNOSTI ISOL&PRSM CS CS PTV ID ISOLATE EA URINE URINLS 72162 A C KILPELA DIP 5 NOAH VIDAL JEA STICK/TAB PSC LET REAGNT NON-AUTO MICRSCPY THER 22619 [facility] PROPH/DX 5 [facility] NJX IV INC INC PUSH SINGLE/1S T SBST/[place] [address] GARTH DEON ABDOMEN & 5 MEDICAL BERT PELVIS IMAGING W/O ASS CONTRAST MATERIAL RADEX 36778 [facility] ANKLE 5 MEDICAL BERT COMPLETE IMAGING MINIMUM 3 ASS VIEWS URINLS 79741 A C FIELD AMB DIP 5 NOAH VIDAL STICK/TAB PSC LET REAGNT NON-AUTO MICRSCPY CULTURE 36477 [facility] BACTERIAL 5 DIAGNOSTI DIAGNOSTI CS CS QUANTTATI VE COLONY COUNT URINE RADEX ABD 47283 DEON DEON COMPL 3 BERT BERT AQT ABD W/S/E/D VIEWS 1 VIEW BLOOD 48423 [facility] COUNT 3 [facility] COMPLETE INC INC AUTO&AUTO DIFRNTL WBC URINE 47101 [facility] 3 [facility] TEST INC INC [place] [address] [facility] LIPASE 3 [facility] INC INC COMPREHEN 86868 [facility] SIVE 3 [facility]OS[facility] METABOLIC INC INC PANEL COMPREHEN 15630 [facility] SIVE 1 [facility]OS[facility] METABOLIC INC INC PANEL BLOOD 49344 [facility] OCCULT 1 [facility] PEROXIDAS INC INC E ACTV QUAL FECES 1-3 SPEC URNLS DIP 62372 [facility] 1 [facility] STICK/TAB INC INC LET REAGENT AUTO MICROSCOP Y URINE 24072 [facility] 1 [facility] TEST INC INC VISUAL COLOR CMPRSN METHS BLOOD 04637 [facility] COUNT 1 [facility]OS[facility] COMPLETE INC INC AUTO&AUTO DIFRNTL WBC ANTIBODY 28028 [facility] HELICOBAC [address] HOLDING HOLDING PYLORI IAADIADOO 88236 [facility] INGRID 1 [facility]ALTH[facility]SEP STREPTOCO E CENTER CCUS GROUP A COLLECTIO 75125 [facility] INGRID N VENOUS 1 [facility]ALTHCAR JOSEP BLOOD E CENTER VENIPUNCT URE GENERAL 38671 [facility] HEALTH 1 AMERIC AMERIC PANEL HOLDING HOLDING LIPID 95847 [facility] PANEL 1 AMERIC AMERIC HOLDING HOLDING DETERMINA 75340 [facility] TION 1 [facility] REFRACTIV CENTER E STATE OPHTH 90672 [facility] MEDICAL 1 [facility] XM&EVAL CENTER COMPRE NEW PT 1/> VST 25 64040 [facility] HYDROXY 1 AMERIC AMERIC INCLUDES HOLDING HOLDING FRACTIONS IF PERFORMED IAADIADOO 97789 [facility] GRAVES 0 HEALTHCAR LES STREPTOCO E CENTER CCUS GROUP A COLLECTIO 48988 [facility] GRAVES, N VENOUS 0 HEALTHCAR JENS W BLOOD E CENTER VENIPUNCT URE URNLS DIP 47082 [facility] GRAVES, 0 HEALTHCAR JENS W STICK/TAB E CENTER LET RGNT AUTO W/O MICROSCOP Y GENERAL 55373 [facility] HEALTH 0 AMERIC AMERIC PANEL HOLDING HOLDING LAPAROSCO 23457 HARDEEP MEIER, PY SURG 0 GARY VEGA CHOLECYST ECTOMY ANES 90740 [place] POND, INTRAPERI 0 ANESTHESI NICOLE D TONEAL A GROUP UPPER PSC ABDOMEN W/LAPS NOS LEVEL V 67547 PATHOLOGY PATHOLOGY SURG 0 & & PATHOLOGY CYTOLOGY CYTOLOGY LAB LAB GROSS&TY ROSCOPIC EXAM LEVEL III 21032 PATHOLOGY PATHOLOGY SURG 0 & & PATHOLOGY CYTOLOGY CYTOLOGY LAB LAB GROSS&TY ROSCOP[place] 72842 HARDEEP MEIER, NDL DONE 0 GARY VEGA PURPOSE TM OTH MAJOR PX SPCL STN 35109 PATHOLOGY PATHOLOGY 2 I&R 0 & & EXCPT CYTOLOGY CYTOLOGY MICROORG/ LAB LAB ENZYME/IM CYT GONADOTRO 29927 [facility] PIN 0 N N CHORIONIC [facility] QUALITATI VE COLLECTIO 17653 [facility] N VENOUS 0 N N BLOOD [facility] URE BLOOD 30045 [facility] COUNT 0 N N [facility] AUTO&[facility]O [facility]OSPITAL HOSPITAL DIFRNTL WBC COMPREHEN 76492 [facility] SIVE 0 N N METABOLIC [facility] [address] [facility] AMYLASE [address] [facility] HPYLORI 59058 [facility] DRUG 0 N N ADMINIST[place] [address] [facility] LIPASE [address] [facility] INJECTION [id number] [facility] [address] [facility] MICROGRAM S HEPATBL 05339 CN[facility] SHELBIE LYLE, DUX SYS 0 RADIOLOGY BEAU G IMG GLBLDR URNLS DIP 16757 HORIZON GRAVES, 0 [facility] W STICK/TAB E CENTER LET RGNT AUTO W/O MICROSCOP Y URNLS DIP 15422 TROY SIMMONS 0 [facility] STICK/TAB INC INC LET REAGENT AUTO MICROSCOP Y URINE 95858 TROY SIMMONS 0 [facility] TEST INC [place] [address] [facility] ABDOMEN 9 N N W/CONTRAS [facility] [place] [address] [facility] [place] BR[place], ABDOMEN 9 RADIOLOGY J W/O & W/CONTRAS T MATERIAL URINE 77312 HORIZON ADRIANA, 9 [facility] TEST E CENTER VISUAL COLOR CMPRSN [place] URNLS DIP 96434 HORIZON ADRIANA, 9 [facility] ALVINO STICK/TAB E CENTER LET RGNT AUTO [place] [address] [facility] RETROPERI 9 N N [facility] TIME [facility] W/IMAGE COMPLETE US PELVIC 51337 [facility] 9 N N NONOBSTET [facility] REAL-TIME IMAGE COMPLETE COLLECTIO 01114 [facility] N VENOUS 9 N N BLOOD RETREAT [facility] URE BLOOD 45554 [facility] COUNT 9 N N [facility] AUTO&AUTO [facility] [place] [address] [facility] AMYLASE 9 N N [facility] INJECTION J1170 [facility] 9 N N HYDROMORP [facility] TO 4 MG INJECTION J2405 [facility] 9 N N ONDANSETR [facility] PER 1 MG COMPREHEN 65177 [facility] SIVE 9 N N METABOLIC [facility] URINE 06555 [facility] 9 N N TEST [facility] COLOR CMPRSN [place] URNLS DIP 34740 [facility] 9 N N STICK/TAB [facility] REAGENT AUTO MICROSCOP Y URINALYSI 90636 [facility] S 9 N N MICROSCOP [facility] [place] [address] [facility] LIPASE [address] [facility] ETONOGEST J7307 [facility], REL 9 N DORINA L CNTRACPT OBSTETRIC IMPL SYS S AND INCL IMPL GYNECOLOG & SPL Y BLOOD 64223 [facility] COUNT 9 [facility] INC COMPLETE AUTO&AUTO DIFRNTL WBC GONADOTRO 39672 [facility] PIN 9 [facility] [place] [address] [facility], TRANSVAGI 9 N DORINA L NAL OBSTETRIC S AND GYNECOLOG Y INSERTION 81685 [facility] [place], 9 N DORINA L IMPLANTAB OBSTETRIC LE S AND CONTRACEP GYNECOLOG TIVE Y CAPSULES CULTURE 11273 [facility] BACTERIAL 9 [facility] QUANTTATI VE COLONY COUNT URINE GONADOTRO 46352 [facility] PIN 9 [facility] CHORIONIC QUANTITAT [place] GONADOTRO 18241 [facility] PIN 9 N N CHORIONIC [facility] [place] [address] [facility] [place], TRANSVAGI 9 N DORINA L NAL OBSTETRIC S AND GYNECOLOG Y COLLECTIO 21800 [facility] N VENOUS 9 N N BLOOD [facility] [place] [address] [facility] [place], ABDOMEN 9 RADIOLOGY [place] [address] [facility], TRANSVAGI [address] [place] [address] [facility] [place], W/O 9 RADIOLOGY J CONTRAST MATERIAL URNLS DIP 18245 JAZMÍN NOYOLA, 9 ROSA ROSA STICK/TAB K K LET RGNT NON-AUTO W/O MICRSCP GUY 30741 JAZMÍN NOYOLA, POST-VOID 9 ROSA ROSA ING K K RESIDUAL URINE&/BL ADDER CAP URNLS DIP 54938 HORIZON KLEBER, 9 [facility] STICK/TAB E CENTER LET RGNT AUTO W/O MICROSCOP Y GENERAL 44805 [facility] 9 [facility]IC [employer] PANEL HOLDING HOLDING LIPID 22832 [facility] PANEL 9 [employer] HOLDING HEMOGLOBI 69296 [facility] KIM[facility] N 9 AMERIC AMERIC GLYCOSYLA HOLDING [place] [address] LAB [facility] TESTOSTER 9 AMERIC AMERIC ONE TOTAL HOLDING HOLDING COLLECTIO 80150 HORIZON KLEBER, N VENOUS 9 [facility] [place] [address] [place] VALDO, ABDOMEN 8 RADIOLOGY BEAU G W/O CONTRAST MATERIAL CT PELVIS [address] [facility] [place] VALDO, W/O 8 RADIOLOGY BEAU G CONTRAST MATERIAL URINE 07272 HORIZON KLEBER, 8 [facility] TEST E CENTER VISUAL COLOR CMPRSN METHS URINE 91149 HORIZON KLEBER, 8 [facility] TEST [facility] C[facility] VISUAL COLOR CMPRSN METHS IADNA 20291 [facility] KG, STREPTOCO 8 [place] INC BEBO E CCUS GROUP B AMPLIFIED PROBE TQ IADNA 62387 [facility] AMERIPATH TRICHOMON 8 [facility] INC INC VAGINALIS DIRECT PROBE TQ CYTP 65249 [facility] KG, CERV/VAG 8 [place] INC BEBO E AUTO THIN LAYER PREP MNL SCREEN IADNA 89190 [facility] KG, HERPES 8 [place] INC BEBO E SOMPLX VIRUS AMPLIFIED PROBE TQ IADNA 26253 [facility] KG, NEISSERIA 8 [place] INC BEBO E GONORRHOE AE AMPLIFIED PROBE TQ URNLS DIP 74113 HORIZON KLEBER, 8 [facility] STICK/TAB E CENTER LET RGNT AUTO W/[place] [address] [facility] STREPTOCO 8 N N CCUS [facility] CUL BACT 51210 [facility] XCPT 8 N N URINE [facility] OL AEROBIC ISOL COLLECTIO 10115 [facility] N VENOUS 8 N N BLOOD [facility] [place] Encounters Encounter Start End Date Code Location Performer Type Date OFFICE 32884 [facility] TIM OUTPATIEN 6 6 PHYSICIAN T VISIT S GROUP 25 MINUTES OFFICE 40148 ROXANNE OLIVEIRA OUTPATIEN 6 6 T VISIT 25 MINUTES OFFICE 07218 ROXANNE OLIVEIRA OUTPATIEN 6 6 T VISIT 25 MINUTES [facility] TROY - 6 6 [facility] T OFFICE 17466 [facility] T VISIT 5 TH DEPT TH DEPT MINUTES [facility] OFFICE 54887 GRAVES GRAVES CONSULTAT 6 6 LES LES ION NEW/ESTAB PATIENT 40 MIN OFFICE 86284 [facility] RACHEL OUTPATIADAM 6 6 PHYSICIAN TY T VISIT S GROUP 15 MINUTES EMERGENCY 05862 OG DUMONT 6 6 PHYSICIAN TY DEPARTMEN S, PLLC T VISIT MODERATE SEVERITY OFFICE 92343 [facility] TIM OUTPATIEN 6 6 PHYSICIAN TY T NEW 20 S GROUP MINUTES OFFICE 62910 [facility] RACHEL OUTPATIEN 5 5 PHYSICIAN TY T VISIT S GROUP 15 MINUTES HOSPITAL TROY - 5 5 [facility] OUTPATIEN INC T EMERGENCY 03996 OG HALL 5 5 PHYSICIAN U MEGAN DEPARTMEN S, PLLC T VISIT HIGH/URGE NT SEVERITY EMERGENCY 15664 OG DUMONT 5 5 PHYSICIAN TY DEPARTMEN S, PLLC T VISIT MODERATE SEVERITY EMERGENCY 15990 OG PAGE 5 5 PHYSICIAN DEPARTMEN S, PLLC T VISIT HIGH/URGE NT SEVERITY OFFICE 51138 [facility] YODER OUTSISSY 5 5 PHYSICIAN GINGER T NEW S GROUP MINUTES OFFICE 78929 TROY REILLY 5 5 [facility] T VISIT HOSPITAL 10 MINUTES EMERGENCY 33178 OG DUMONT 5 5 PHYSICIAN TY DEPARTMEN S, PLLC T VISIT MODERATE SEVERITY OFFICE 51688 TROY REILLY 5 5 [facility] T VISIT HOSPITAL 15 MINUTES EMERGENCY 27095 OG DUMONT DEPT 5 5 PHYSICIAN TY VISIT S, PLLC HIGH SEVERITY& THREAT FUNCJ EMERGENCY 55928 OG DUMONT 5 5 PHYSICIAN TY DEPARTMEN S, PLLC T VISIT HIGH/URGE NT SEVERITY EMERGENCY 72435 OG Thompson 5 5 PHYSICIAN DEPARTMEN S, PLLC T VISIT HIGH/URGE NT SEVERITY OFFICE 29797 TROY REILLY 5 5 [facility] 20 HOSPITAL MINUTES P OFFICE 29181 Sofiya REILLY 5 5 NOAH GUZMAN T VISIT [facility] 15 MINUTES HOSPITAL TROY - 5 5 [facility] OUTPATIEN INC T EMERGENCY 73954 TROY Thompson 5 5 [facility] T VISIT P MODERATE SEVERITY HOSPITAL TROY - 5 5 [facility] OUTPATIEN INC T OFFICE 88185 A C FIELD AMB OUTPATIEN 5 5 NOAH VIDAL T VISIT PSC 15 MINUTES OFFICE 88672 A C FIELD AMB OUTPATIEN 5 5 NOAH VIDAL T VISIT PSC 15 MINUTES OFFICE 51788 [facility] PETTEY OUTPATIEN 4 4 PHYSICIAN JAM T VISIT S GROUP 15 MINUTES OFFICE 97968 TIM TIM OUTPATIEN 4 4 TY TY T VISIT 15 MINUTES OFFICE 21338 MORGAN ELICIA MORGAN ELICIA OUTPATIEN 4 4 T NEW 30 MINUTES OFFICE 88031 ARNOLD ARNOLD OUTPATIEN 3 3 ED ED T VISIT 15 MINUTES OFFICE 90089 SHARON SHELL OUTPATIEN 3 3 T VISIT 15 MINUTES OFFICE 38761 [facility] OUTPATIEN 3 3 PHYSICIAN T VISIT S GROUP 15 MINUTES HOSPITAL TROY - 3 3 [facility] OUTPATIEN INC T EMERGENCY 86589 TROY 3 3 [facility] DEPARTMEN INC T VISIT LOW/MODER SEVERITY EMERGENCY 49146 SO RIZZO DEPT 3 3 III KRISTINA III KRISTINA VISIT HIGH SEVERITY& THREAT [facility] OFFICE 18453 MAYI MAYI OUTPATIEN 2 2 JASON JASON T VISIT 15 MINUTES EMERGENCY 74616 TROY 1 1 [facility] DEPARTMEN INC T VISIT MODERATE SEVERITY EMERGENCY 08740 BORIS RIZZO DEPT 1 1 EMERGENCY III KRISTINA VISIT SERVICES HIGH SEVERITY& THREAT [facility] TROY - 1 1 [facility] OUTPATIEN INC T OFFICE 64643 HORIZON INGRID OUTPATIEN 1 1 [facility] JOSEP T VISIT E CENTER 15 MINUTES OFFICE 95599 HORIZON INGRID OUTPATIEN 1 1 [facility] T VISIT E CENTER 15 MINUTES OFFICE 84078 HORIZON SALONI OUTPATIEN 1 1 [facility] HEN T VISIT E CENTER 15 MINUTES OFFICE 67809 HORIZON INGRID OUTPATIEN 1 1 [facility] JOSEP T VISIT E CENTER 15 MINUTES OFFICE 66984 HORIZON GRAVES OUTPATIEN 0 0 [facility] LES T VISIT E CENTER 15 MINUTES OFFICE 40648 HORIZON GRAVES OUTPATIEN 0 0 [facility] LES T VISIT E CENTER 15 MINUTES OFFICE 29177 HORIZON GRAVES, OUTPATIEN 0 0 [facility] JENS W T VISIT E CENTER 15 MINUTES HOSPITAL [facility] 36171 HARDEEP, HARDEEP, CONSULTAT 0 0 GARY VEGA ION NEW/ESTAB PATIENT 80 MIN HOSPITAL [facility] 65959 HORIZON GRAVES, OUTPATIEN 0 0 [facility] J[facility] W T VISIT E CENTER 15 MINUTES OFFICE 53088 HORIZON GRAVES, OUTPATIEN 0 0 [facility] W T VISIT E CENTER 15 MINUTES EMERGENCY 27228 TROY 0 0 [facility] DEPARTMEN INC T VISIT LOW/MODER SEVERITY HOSPITAL TROY - 0 0 [facility] OUTPATIEN INC T EMERGENCY 84511 BORIS WEINER, 0 0 EMERGENCY MARGARITA DEPARTMEN SERVICES O T VISIT HIGH/URGE ASSOCIATE NT S SEVERITY OFFICE 38062 HORIZON SHETH, OUTPATIEN 0 0 [facility] LILIANA M T VISIT E CENTER 15 MINUTES HOSPITAL [facility] - 9 9 N OUTPATIEN [facility] OFF[facility] 99020 [facility] 9 VALERIA DE OLIVEIRA T VISIT E CENTER 15 MINUTES HOSPITAL [facility] - 9 9 N [facility]PITAL OFFICE 40903 [facility] ADRIANA [facility] 9 9 VALERIA DE OLIVEIRA T VISIT E CENTER 15 MINUTES EMERGENCY 39020 BORIS GRACIA 9 9 EMERGENCY [facility] SERVICES T VISIT HIGH/URGE NT SEVERITY HOSPITAL [facility] - 9 9 N [facility]PITAL EMERGENCY 69332 [facility] 9 9 N [facility] MODERATE SEVERITY OFFICE 78603 [facility] 9 9 N ODRINA L T VISIT OBSTETRIC 10 S AND MINUTES GYNECOLOG Y HOSPITAL [facility] - 9 9 N [facility]PITAL OFFICE 58293 [facility] 9 9 N DORINA L T NEW 45 OBSTETRIC MINUTES S AND GYNECOLOG Y EMERGENCY 80982 DARIO ECHOLS, DEPT 9 9 DIAN Olivier VISIT EMERGENCY HIGH PHYS INC SEVERITY& THREAT FUN OFFICE 70763 WINDISCH, WINDISCH, CONSULTAT 9 9 ROSA ROSA ION K K NEW/ESTAB PATIENT 40 MIN OFFICE 20967 [facility] KLEBER [facility] 9 9 [facility] 15 MINUTES EMERGENCY 86971 [facility] 8 8 N [facility] LIMITED/M INOR PROB HOSPITAL [facility] - 8 8 N [facility] HOSPITAL EMERGENCY 98897 DARIO ECHOLS, 8 8 DIAN Olivier [facility] EMERGENCY T VISIT PHYS INC MODERATE SEVERITY EMERGENCY 79429 [facility] PETER, 8 8 DIAN HERNAN [facility] EMERGENCY A T VISIT PHYS INC HIGH/URGE NT SEVERITY OFFICE 41460 TOMMIE VILLAGRAN 8 8 [facility] T VISIT E CENTER 10 MINUTES PERIODIC 85291 BENOIT VILLAGRAN 8 8 [facility] E MED EST E CENTER PATIENT 18-39 YRS OFFICE 89048 TOMMIE VILLAGRAN 8 8 [facility] T VISIT E CENTER 15 MINUTES EMERGENCY 89016 [facility], DEPT 8 8 DIAN BECERRA VISIT EMERGENCY A HIGH PHYS INC SEVERITY& THREAT [facility] - 8 8 N [facility]OSPITAL EMERGENCY 64629 [facility] 8 8 N [facility] T VISIT HOSP[facility] MODERATE SEVERITY OFFICE 94083 TOMMIE VILLAGRAN 8 8 [facility] T VISIT E CENTER 15 MINUTES
--- OUTSIDE RECORDS SUMMARY | 2017-05-17 18:53 | External Medical Summary Rpt ---
Demographics Preferred Language Botswanan Marital Status Unknown Confucianism Affiliation Unknown Race Unknown Ethnic Group Unknown Author Author JED Address Unknown Phone Immunization No patient found.
--- OUTSIDE RECORDS SUMMARY | 2017-05-17 18:53 | External Medical Summary Rpt ---
Demographics Preferred Language Algerian Marital Status Unknown Congregation Affiliation Unknown Race Unknown Ethnic Group Unknown Author Author JED Address Unknown Phone Immunization No patient found.
[2017-05-17 19:50] VITALS: BP 120/83
[2017-05-18] MEDS ORDERED: FIORICET1 CAP PO (18:28)
[2017-05-18] MEDS ORDERED: IMITREX 25MG TA25 MG PO (18:28)
== END 2017-05-17 19:53 | disposition home or self-care (01) ==
LOC: UTC 18:33
DX: G43.009 Migraine without aura, not intractable, without status migrainosus (principal); Z72.0 Tobacco use

== ENCOUNTER → 2017-07-31 | Outpatient (CLI) | payer MEDICAID ==
[~2017-07-31] MED LIST changes: +FIORICET1 CAP PO; +IMITREX 25MG TA25 MG PO
--- NOTE | 2017-08-01 07:47 | RADIOLOGY REPORT PS360 ---
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 The lungs are clear without infiltrates, suspicious nodules, or pleural effusions. No acute bony abnormalities. No evidence of active granulomatous process. Mild mid thoracic curvature convex right IMPRESSION: No change with no acute finding
--- NOTE | 2017-08-01 07:47 | RADIOLOGY REPORT PS360 ---
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 The lungs are clear without infiltrates, suspicious nodules, or pleural effusions. No acute bony abnormalities. No evidence of active granulomatous process. Mild mid thoracic curvature convex right IMPRESSION: No change with no acute finding
== END ==
LOC: RAD 18:01
DX: L40.0 Psoriasis vulgaris (principal); Z79.899 Other long term (current) drug therapy

== ENCOUNTER → 2017-08-14 | Outpatient (CLI) | payer MEDICAID ==
[2017-08-14 13:54] LABS: HEMOGLOBIN 14.6 g/dL (12.2-16.2); LYMPH # 1.7 K/mm3 (0.7-4.5); LYMPH % 22.8 % (10-50.0)
[2017-08-14 14:08] LABS: BUN 13 mg/dL (7-18)
[2017-08-14 14:20] LABS: GFR (ESTIMATED) 81 ML/MIN (59-)
[2017-08-15 08:47] LABS: Vitamin D, 25-Hydroxy 23.3 ng/mL (30.0-100.0)
== END ==
LOC: LAB 13:24
PROVIDERS: Nurse Practitioner Family
DX: R53.83 Other fatigue (principal); E55.9 Vitamin D deficiency, unspecified

== ENCOUNTER 2017-09-07 15:40 | Emergency (ER) | payer MEDICAID ==
[~2017-09-07] VITALS: Ht 160 cm; Wt 99.9 kg
--- OUTSIDE RECORDS SUMMARY | 2017-09-07 15:47 | External Medical Summary Rpt | CCD ---
Author Author , JED ADKINS Address Unknown Phone [email or web address] Care Team Providers Care Parcel Carrier Name Role Phone Audi Luna MD, Unavailable Unavailable Audi Luna MD Purpose Continuity of Care Document - 06-01-2013 through 2016 Problems Code Diagnosis DOS Provider Status 845.00 845.00 06-01-2013 Ralph SPRAIN OF [facility] E849.8 E849.8 06-01-[address] [facility] E927.0 E927.0 06-01-2013 Ralph OVEREXERTIO [facility] SUDDEN STRENUOUS MOVEMENT G43.909 MIGRAINE, UNSP, NOT INTRACTABLE , WITHOUT STATUS MIGRAINOSUS Allergies, Adverse Reactions, Alerts Type Drug Allergy Adverse Reaction to Substance Substance Reaction Severity Amoxicillin SWELLING Unknown Medications Na ND Rx Da Fi Fi Am Da Di Ph RX Ph St me C No te ll ll ou ys ag ar # ys at rm s nt no ma ic us Or Da si cy ia de te s n re d KE 00 08 0 No TO 40 -2 RO 93 7- Lo LA 79 20 ng C 60 13 er 60 1 Ac MG ti /2 ve ML AL Vital Signs 06-01-2013 12:03 Name Value Interpretat Reference Comment ion Range BP 78 mm[Hg] Diastolic BP Systolic 105 mm[Hg] Heart 83 /min Rate/Pulse O2% 95 % Respiratory 20 /min Rate 06-01-2013 11:30 Name Value Interpretat Reference Comment ion Range BP 76 mm[Hg] Diastolic BP Systolic 118 mm[Hg] Heart 80 /min Rate/Pulse O2% 95 % Respiratory 20 /min Rate Results Labs Lab Lab Date Result Refere Interp Status Commen Order Detail nces retati t Range on CBC w auto diff (08-14-2017 11:30) Automat = 31.7 31.8-35 complet ed 017 g/dl .4 ed erythro 11:30 cyte mean corpusc ular h Blood = 7.4 4.8-10. complet leukocy 017 K/MM3 8 ed farooq 11:30 count (number /volume ) Automat = 13.1 11.5-17 complet ed 017 % .5 ed erythro 11:30 cyte distrib ution width Red = 4.76 4.2-5.4 complet blood 017 M/mm3 ed cell 11:30 count Blood = 295 142-424 complet platele 017 K/mm3 ed t count 11:30 Automat = 9.5 7.4-10. complet ed 017 fl 4 ed blood 11:30 platele t mean volume el [place] % = 4.3 % 1.7-9.3 complet 017 ed 11:30 Absolut = 0.3 0.1-1.0 complet e 017 K/mm3 ed monocyt 11:30 e count Automat = 96.4 82.2-97 complet ed 017 fl .8 ed erythro 11:30 cyte mean corpusc ular v Mean = 30.6 27-31.2 complet corpusc 017 pg ed ular 11:30 hemoglo bin (MCH) determ Lymphoc = 22.8 10-50.0 complet yte 017 % ed count, 11:30 blood, automat ed Absolut = 1.7 0.7-4.5 complet e 017 K/mm3 ed lymphoc 11:30 yte count Blood = 14.6 12.2-16 complet hemoglo 017 g/dL .2 ed bin 11:30 measure ment (mass/v olum Blood = 46.0 37.0-47 complet hematoc 017 % .0 ed rit 11:30 (volume fractio n) Granulo = 69.4 37.0-80 complet cyte 017 % .0 ed percent 11:30 age Blood = 5.1 1.8-7.8 complet granulo 017 K/mm3 ed cytes 11:30 automat ed count (numb Automat = 3.2 % 0.1-12. complet ed 017 0 ed blood 11:30 eosinop hils/10 0 leukocy t Automat = 0.2 0.0-0.4 complet ed 017 K/mm3 ed blood 11:30 eosinop hil count Baso % = 0.4 % 0.1-2.0 complet 017 ed 11:30 Automat = 0.0 0-0.2 complet ed 017 K/MM3 ed blood 11:30 basophi l count (count/ vo Serum or plasma 25-hydroxyvitamin D steve (08-14-2017 11:30) Serum = 23.3 30.0-10 complet or 017 ng/mL 0.0 ed plasma 11:30 25-hydr oxyvita min D steve Comment: Vitamin D deficiency has been defined by the [place] of Comment: Medicine and an Endocrine Society practice guideline as a Comment: level of serum 25-OH vitamin D less than 20 ng/mL (1,2). Comment: The Endocrine Society went on to further define vitamin D Comment: insufficiency as a level between 21 and 29 ng/mL (2). Comment: 1. IOM ([place] of Medicine). 2010. Dietary reference Comment: intakes for calcium and D. [place]: The Comment: National AcademSpotlight Press. Comment: 2. Dru MF, Marin VOGT, Kuldip BOWDEN, et al. Comment: Evaluation, treatment, and prevention of vitamin D Comment: deficiency: an Endocrine Society clinical practice Comment: guideline. JCEM. 2010; 96(7):1911-30. Comment: Performed at: [facility] Comment: [id number], [place] [id number] Comment: Portuguese Tutor: Jaime Powell PhD, Phone: [phone] Vitamin B12 ser/plas (08-14-2017 11:30) Vitamin = 394 335-206 complet B12 017 pg/mL ed ser/dennise 11:30 s Comment: Performed at: [facility] Comment: [id number], [place] [id number] Comment: Portuguese Tutor: Jaime Powell PhD, Phone: [phone] Hemoglobin A1c measurement (08-14-2017 11:30) Hemoglo 5.4 % 0.0-7.0 complet bin A1c 017 ed 11:30 Comment: < 6% NON-DIABETIC LEVEL Comment: < 7% CONTROLLED DIABETIC LEVEL Comment: > 8% POORLY CONTROLLED DIABETIC LEVEL Serum or plasma thyroid stimulating horm (08-14-2017 11:30) Serum = 3.32 0.358-3 complet or 017 uIU/ml .740 ed plasma 11:30 thyroid stimula ting horm Lipid profile (08-14-2017 11:30) Serum = 16.6 0-40 complet or 017 ed plasma 11:30 cholest eric in VLDL steve Serum = 83 30-200 complet or 017 mg/dL ed plasma 11:30 triglyc eride measure ment Serum = 138.4 0-130 complet or 017 mg/dL ed plasma 11:30 cholest eric in LDL measu Serum = 59.0 40-60 complet or 017 MG/DL ed plasma 11:30 cholest eric in HDL measu Total = 214 < 200 complet cholest 017 mg/dL ed eric 11:30 measure ment Serum or plasma free thyroxine (T4) steve (08-14-2017 11:30) Serum = 0.96 0.76-1. complet or 017 ng/dL 46 ed plasma 11:30 free thyroxi ne (T4) steve Comprehensive metabolic panel (08-14-2017 11:30) Protein = 7.3 6.4-8.2 complet total 017 gm/dL ed ser/dennise 11:30 s ALT = 26 12-78 complet (SGPT) 017 U/L ed ser/dennise 11:30 s Serum = 18 15-37 complet or 017 U/L ed plasma 11:30 asparta te aminotr ansfera Serum = 140 136-145 complet sodium 017 mmoL/L ed measure 11:30 ment Serum = 4.0 3.5-5.1 complet potassi 017 mmoL/L ed um 11:30 measure ment Serum = 91 74-106 complet or 017 mg/dL ed plasma 11:30 glucose measure ment (mas Serum = 3.6 1.3-3.2 complet globuli 017 gm/dL ed n 11:30 measure ment (mass/v olume) Estimat = 81 59- complet ed 017 ML/MIN ed glomeru 11:30 lar filtrat ion rate (GF Comment: REFERENCE RANGE: >60 ML/MIN/1.73 SQUARE METERS Comment: If this patient is -British, then multiply the Comment: result by 1.210. Serum = 0.8 0.55-1. complet or 017 mg/dL 02 ed plasma 11:30 creatin ine measure ment ( Carbon = 24 21.0-32 complet dioxide 017 mmoL/L .0 ed 11:30 measure ment Serum = 105 98-107 complet or 017 mmoL/L ed plasma 11:30 chlorid e measure ment (mo Serum = 8.8 8.5-10. complet or 017 mg/dL 1 ed plasma 11:30 calcium measure ment (mas Serum = 13 7-18 complet or 017 mg/dL ed plasma 11:30 urea nitroge n measure men Serum = 0.5 0.2-1.0 complet or 017 mg/dL ed plasma 11:30 total bilirub in measure m Serum = 88 46-116 complet or 017 U/L ed plasma 11:30 alkalin e phospha tase el Serum = 3.7 3.4-5.0 complet or 017 gm/dL ed plasma 11:30 albumin measure ment (mas Serum = 1.0 1.1-1.8 complet or 017 ed plasma 11:30 albumin /globul in mass ra Procedures Procedure DOS Code Location Performer Comment APPLICATI 93.54 Audi ON OF Jeremy VIDAL SPLINT Encounters Encounter Start End Date Code Location Performer Type Date Emergency HECTOR Luna MD (ER) 3 11:25 3 12:03 [facility]
--- OUTSIDE RECORDS SUMMARY | 2017-09-07 15:47 | External Medical Summary Rpt | CCD ---
Author Author , JED ADKINS Address Unknown Phone [email or web address] Care Team Providers Care Lead Web Application Developer Name Role Phone Audi Luna MD, Unavailable Unavailable Audi Luna MD Purpose Continuity of Care Document - 06-01-2013 through 2016 Problems Code Diagnosis DOS Provider Status 845.00 845.00 06-01-2013 Ralph SPRAIN OF [facility] E849.8 E849.8 06-01-2013 Ralph ACCIDENT IN [facility] E927.0 E927.0 06-01-2013 Ralph OVEREXERTIO [facility] SUDDEN STRENUOUS MOVEMENT G43.909 MIGRAINE, UNSP, [...] blood 11:30 platele t mean volume el [place] % = 4.3 % 1.7-9.3 complet 017 [...] D deficiency has been defined by the [place] of Comment: Medicine and an Endocrine Society practice guideline as a Comment: level of serum 25-OH vitamin D less than 20 ng/mL (1,2). Comment: The Endocrine Society went on to further define vitamin D Comment: insufficiency as a level between 21 and 29 ng/mL (2). Comment: 1. IOM ([place] of Medicine). 2010. Dietary reference Comment: intakes for calcium and D. [place]: The Comment: National Academ[employer] Press. Comment: 2. Dru MF, Marin VOGT, Kuldip BOWDEN, et al. Comment: Evaluation, treatment, and prevention of vitamin D Comment: deficiency: an Endocrine Society clinical practice Comment: guideline. JCEM. 2010; 96(7):1911-30. Comment: Performed at: [facility] Comment: [phone], [place] [id number] Comment: Information Engineer: Jaime Powell PhD, Phone: [phone] Vitamin B12 ser/plas (08-14-2017 11:30) Vitamin = [phone] complet B12 017 pg/mL ed ser/dennise 11:30 s Comment: Performed at: [facility] Comment: [id number], [place] [id number] Comment: Information Engineer: Jaime Powell PhD, Phone: [phone] Hemoglobin A1c measurement (08-14-2017 11:30) Hemoglo 5.4 [...] SQUARE METERS Comment: If this patient is -Vietnamese, then multiply the Comment: result by 1.210. [...] Luna MD (ER) 3 11:25 3 12:03 [facility]
--- OUTSIDE RECORDS SUMMARY | 2017-09-07 15:50 | External Medical Summary Rpt | CCD ---
Author Author , JED Organization JED Address Unknown Phone [email or web address] Care Team Providers Care Steel Pourer Name Role Phone A Leslie ZAMORA MD PSC, A Unavailable Unavailable Leslie ZAMORA MD [facility] Un[facility] Unavailable [facility], [facility] HERNAN GREEN A, Unavailable Unavailable AHMED BECERRA A Anshul QUISPE, Unavailable Unavailable Anshul QUISPE BRAUN Unavailable Unavailable DEON BERT, Unavailable Unavailable DEON BERT [facility] # [id number], Unavailable Unavailable [facility] # [id number] [id number], Unavailable Unavailable [facility] [address] SHAHID DABNEY, Unavailable Unavailable GARY RANGEL, Unavailable Unavailable GARY MEIER GAINEY Unavailable Unavailable [facility] Unavailable Unavailable [facility], [facility] BETTY ALVAREZ, BETTY Unavailable Unavailable LES JENS HERNÁNDEZ, Unavailable Unavailable JENS HERNÁNDEZ RHONDA G, Unavailable Unavailable BEAU LYLE [facility] Unavailable Unavailable INC, [facility] Unavailable Unavailable [facility] DORINA MCCORMACK JR, Unavailable Unavailable DORINA MCCORMACK JR [facility], Unavailable Unavailable [facility], Unavailable Unavailable [facility] Unavailable Unavailable WAR, [facility] Unavailable Unavailable IMAGING [facility], [facility] Unavailable Unavailable HOLD[facility], [facility] Unavailable Unavailable [facility], [facility] Unavailable Unavailable SERVICES, [facility] MORGAN ELICIA, MORGAN ELICIA Unavailable Unavailable [facility], Un[facility]available [facility], [facility] Unavailable Unavailable LAB, [facility], Unavailable Unavailable [facility] Unavailable Unavailable [id number] # [id number], [facility] [id number] # 0393 SCALF LEI, SCALF LEI Unavailable Unavailable NICOLE POND, Unavailable Unavailable NICOLE POND SUSAN E, Unavailable Unavailable BEBO SAUL LYNN M, Unavailable Unavailable LILIANA SHETH [facility] # Unavailable Unavailable [id number], [facility] # [id number] [id number] # Unavailable Unavailable [id number], [facility][id number] # [id number] [facility] Unavailable Unavailable DEPT CLIFF, [facility] WELISA III KRISTINA, Unavailable Unavailable WEMAN III ROSA MURRAY, Unavailable Unavailable ROSA NOYOLA Purpose Continuity of Care Document - 12-17-2007 through 2016 Problems Code Diagnosis DOS Provider Status L400 PSORIASIS 07-31-2017 [facility] [id number] OTHER LONG 07-31-2017 [facility] CURRENT INC DRUG THERAPY [id number] MIGRAINE 05-18-2017 [facility] W/STAT MIGRAINOSUS [id number] MIGRAINE 05-17-2017 [facility] NOT INTRACT INC W/O STAT MIGRAIN Z720 TOBACCO USE 05-17-2017 [facility] J309 ALLERGIC 02-20-2017 [facility] RHINITIS PHYSICIAN UNSPECIFIED GROUP M1990 UNSPECIFIED 02-20-2017 [facility] PH[facility]IAN OSTEOARTHRI GROUP TIS UNSPECIFIED SITE J0100 ACUTE 10-08-2016 [facility] MAXILLARY PHYSICIAN SINUSITIS GROUP UNSPECIFIED L409 PSORIASIS 08-19-2016 [facility] UNSPECIFIED PHYSICIANS GROUP M2550 PAIN IN 08-19-2016 [facility] UNSPECIFIED PHYSICIANS JOINT GROUP L408 OTHER 07-09-2016 [facility] L578 OT SKN 07-09-2016 OLIVE[facility]A CHANGES D/T CHRN EXPS TO NONIONIZING RAD Z111 ENCOUNTER 05-20-2016 [facility] DE[facility] RESPIRATORY CLIFF TUBERCULOSI S 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 L298 OTHER 02-19-2016 [facility] PRURITUS L853 XEROSIS 02-19-2016 [facility] CUTIS [id number] MIGRAINE 12-21-2015 [facility] UNS NOT PHYSICIANS INTRACT W/O GROUP STATUS MIGRAINOSUS J209 ACUTE 12-21-2015 [facility] BRONCHITIS PHYSICIANS UNSPECIFIED GROUP R112 NAUSEA WITH 12-21-2015 [facility] VOMITING PHYSICIANS UNSPECIFIED GROUP R51 HEADACHE 12-15-2015 [facility] 5920 CALCULUS OF 06-15-2015 [facility] 5921 CALCULUS OF 06-15-2015 [facility], [facility] 32033 ABDOMINAL 06-13-2015 [place] [facility] OTHER MEDICAL SPECIFIED IMAGING ASS SITE 5589 OTH&UNSPEC 06-12-2015 [facility] NONINFECTIO PH[facility]IANS, [facility] ITIS&COLITI S 6202 OTHER AND 06-10-2015 [place] UNSPECIFIED MEDICAL OVARIAN IMAGING ASS CYST 47530 VOMITING 06-10-2015 [facility] 44440 UNSPECIFIED 06-05-2015 [facility] INFECTIVE PHYSICIANS OTITIS GROUP EXTERNA 4779 ALLERGIC 06-05-2015 [facility] RHINITIS PHYSICIANS CAUSE GROUP UNSPECIFIED 54451 ACUT 05-31-2015 [facility] MEDIA W/SPONT RUP EARDRUM 63589 ACUT 05-03-2015 [facility] MEDIA W/O SPONT RUP EARDRUM 5990 URINARY 05-03-2015 [facility] SITE NOT SPECIFIED 591 HYDRONEPHRO 02-26-2015 [facility] SIS [facility] 94017 ABDOMINAL 02-26-2015 [place] PA[place], MEDICAL UNSPECIFIED IMAGING ASS SITE 5935 HYDROURETER 02-25-2015 [facility] 7880 RENAL COLIC 02-25-2015 [facility] 29894 ESOPHAGEAL 02-02-2015 A Leslie ZAMORA REFLUX [facility] 7245 UNSPECIFIED 02-02-2015 A Leslie ZAMORA BACKACHE [facility] 7881 DYSURIA 02-02-2015 [facility] 22312 HEMATURIA 01-12-2015 [place] UNSPECIFIED [facility]ICAL IMAGING ASS 4659 ACUTE URIS 11-01-2014 A Leslie SANCHEZ [facility] UNSPECIFIED SITE 73418 PAIN IN 11-01-2014 [place] JOINT, MEDICAL ANKLE AND IMAGING ASS FOOT 3804 IMPACTED 10-10-2014 A Leslie WARD MD [facility] 18315 ACHILLES 08-30-2014 [facility] BURSITIS OR PHYSICIANS TENDINITIS GROUP 56820 OTHER ANKLE 08-30-2014 [facility] SPRAIN AND PHYSICIANS STRAIN GROUP 4619 ACUTE 05-26-2014 TIM TY SINUSITIS, UNSPECIFIED 4770 ALLERGIC 03-29-2014 MORGAN ELICIA RHINITIS DUE TO POLLEN 7804 DIZZINESS 03-29-2014 MOR[facility] ELICIA AND GIDDINESS 60035 DIARRHEA 10-16-2012 [facility] 33937 ABDOMINAL 10-16-2012 WEHRMAN III PAIN, KRISTINA EPIGASTRIC V4589 OTHER 10-16-2012 DEON POSTSURGICA BERT L STATUS OTHER 43614 NAUSEA WITH 05-23-2011 [facility] 50654 NAUSEA 05-23-2011 [facility] 462 ACUTE 01-04-2011 [facility] PHARYNGITIS [facility]ALTHCARE CENTER 7862 COUGH 01-04-2011 [facility] 86256 UNSPECIFIED 11-16-2010 [facility] SEBORRHEIC [facility]ALTHCARE DERMATITIS CENTER 3671 MYOPIA 11-08-2010 [facility] 43741 REGULAR 11-08-2010 [facility] 75821 OTHER 11-08-2010 [facility] 7836 POLYPHAGIA 11-08-2010 [facility] 99260 OTHER 11-06-2010 [facility] ABNORMAL [facility] GLU[facility]SE [facility] 7835 POLYDIPSIA 10-31-2010 [facility] V703 OTH GENERAL 10-31-2010 [facility] MEDICAL [facility] EXAMINATION CENTER ADMIN PURPOSES 58187 MIGRAINE 07-26-2010 [facility] UNSP W/O HEALTHCARE INTRACT W/O CENTER STATUS MIGRAINOSUS 7823 EDEMA 05-21-2010 [facility] 80082 UNSPECIFIED 02-06-2010 PATHOLOGY & CHRONIC CYTOLOGY HEPATITIS LAB 5718 OTHER 02-06-2010 HARDE[facility], CHRONIC GARY NONALCOHOLI C LIVER DISEASE 46928 CHOLECYSTIT 02-06-2010 [place] IS, ANESTHESIA UNSPECIFIED GROUP PSC 01092 CHRONIC 02-06-2010 PATHOLOGY & CHOLECYSTIT CYTOLOGY IS LAB 5756 CHOLESTEROL 02-06-2010 [facility], OSIS OF GARY GALL[facility] 5758 OTHER 01-31-2010 [facility], SPECIFIED GARY DISORDER OF GALLBLADDER V7283 OTHER 01-31-2010 [facility] SPECIFIED [facility] VE EXAMINATION 13586 ABDOMINAL 01-25-2010 [facility] [place] PAIN RIGHT RADIOLOGY UPPER QUADRANT 69850 ABDOMINAL 01-25-2010 [facility] TENDERNESS [facility] RIGHT UPPER HOSPITAL QUADRANT 6269 UNS D/O 01-23-2010 [facility] MENSTRUATIO HEALTHCARE N&OTH ABN CENTER BLEED FE GNT TRACT 7242 LUMBAGO 01-23-2010 [facility] 38427 UNSPECIFIED 01-09-2010 [facility] CONSTIPATIO CENTER N 9953 ALLERGY 12-25-2009 [facility] UNSPECIFIED HEALTHCARE NOT CENTER ELSEWHERE CLASSIFIED 38257 CALCU 07-21-2009 [facility] W/O MENTION SERVICES CHOLECYST/O BST 6259 UNSPEC 03-23-2009 [facility]MPT[facility] ASSOC AND W/FEMALE GYNECOLOGY GENITAL ORGANS V255 INSERTION 03-23-2009 [facility] OF OBSTETRICS IMPLANTABLE [place] [address] COMPLETE 03-17-2009 [facility] SPONTANEOUS OBSTETRICS AB WITHOUT AND MENTION GYNECOLOGY COMP 6268 OTH D/O 02-17-2009 [facility] MENSTRUATIO [facility] N&OTH ABN HOSPITAL BLEED FE GNT TRACT 632 MISSED 02-17-2009 [facility] OBSTETRICS AND GYNECOLOGY 6200 FOLLICULAR 02-15-2009 [facility] MD CYST OF RADIOLOGY OVARY 03550 URGENCY OF 10-18-2008 JAZMÍN, URINATION ROSA K V1301 PERSONAL 10-18-2008 JAZMÍN, HISTORY OF ROSA K URINARY CALCULI V1302 PERSONAL 10-18-2008 JAZMÍN, HISTORY OF ROSA K URINARY TRACT INFECTION 7041 HIRSUTISM 10-10-2008 [facility] 96901 POLYURIA 10-10-2008 [facility] 7821 RASH AND 08-29-2008 [facility] OTHER [facility] NONSPECIFIC HOSPITAL SKIN ERUPTION V642 SURG/OTH 08-29-2008 [facility] PROC NOT [facility] CARRIED OUT HOSPITAL BECAUSE PTS DECN V2509 OT GENERAL 01-09-2008 [facility] CNSL&ADVICE CENTER CONTRACEPT MANAGEMENT V7231 ROUTINE 01-04-2008 [facility] C[facility] EXAMINATION V7389 SPECIAL 01-04-2008 [facility] S[facility]EN[facility] [place] INC EXAMINATION OT SPEC VIRAL DZ V745 SCREENING 01-04-2008 [facility] EXAM[place]ATION [place] INC FOR VENEREAL DISEASE V748 SCR 01-04-2008 [facility] EXAMINATION [place] INC OT SPEC BACTERL&SPI ROCHETAL DZ V758 SCREENING 01-04-2008 [facility] EXAMINATION [place] INC OT SPEC PARASITIC INFS V762 SCREENING 01-04-2008 [facility] FOR MD INC MALIGNANT NEOPLASM OF THE CERVIX 11386 WHEEZING 12-24-2007 [facility] 8479 SPRAIN AND 12-24-2007 [facility] UNSPECIFIED CENTER SITE OF BACK 0340 STREPTOCOCC 12-17-2007 [facility] SORE [facility] 463 ACUTE 12-17-2007 [facility] TONSI[facility] N EMERGENCY PHYS INC 6930 DERMATITIS 12-17-2007 [facility] DRUGS&MEDIC HOSPITAL CHITRA TAKEN INTERNALLY 83160 UNS ADVRS 12-17-2007 [facility] EFF UNS RX N EMERGENCY MEDICINAL&B PHYS INC IOLOGICAL [facility] E9478 OT 12-17-2007 [facility] RX&MEDICINA N EMERGENCY L [facility] PH[facility] INC CAUS ADVRS EFF TX USE Medications Na ND Rx Da Fi Fi Am Da Di Ph RX Ph St me C No te ll ll ou ys ag ar # ys at rm s nt no ma ic us Or Da si cy ia de te s n re d ST 57 11 12 0. 28 00 CV Ac EL 89 -0 -0 50 00 S ti AR 40 6- 1- 0 14 CA ve A 06 20 20 49 RE 45 00 17 17 21 MA 3 43 RK MG /0 .5 ML SY RI NG E CL 00 10 11 50 30 00 WA Ac OB 16 -0 -0 .0 00 L- ti ET 80 1- 3- 00 07 MA ve 26 20 20 49 RT OL 95 17 17 26 0 32 PH 0. AR 05 MA % CY SO TARAN #5 TI 91 ON CL 00 07 08 50 30 00 WA Ac OB 16 -1 -1 .0 00 L- ti ET 80 9- 8- 00 07 MA ve 26 20 20 49 RT OL 95 17 17 26 0 32 PH 0. AR 05 MA % CY SO TARAN #5 TI 91 ON HY 45 07 08 [address] 80 -1 -1 .0 00 L- ti OC 20 9- 8- 00 07 MA ve OR 45 20 20 49 RT TI 53 17 17 26 SO 5 28 PH NE AR MA VA CY L 0. #5 2% 91 CR EA M HU 00 02 03 2. 28 00 SE Ac NM 07 -1 -2 00 00 ND ti RA 44 6- 4- 0 00 ER ve 33 20 20 73 RA 40 90 17 17 66 2 44 RX MG /0 PH .8 AR MA ML CY PE N HU 00 12 03 2. 28 00 SE Ac NM 07 -2 -0 00 00 ND ti [...] 12 01 4. 28 00 SE Ac NM 07 -0 -0 00 00 ND ti [...] E TA 10 BL 05 ET 91 TN 37 08 08 0 30 30 WA [...] .[address] ti LO 20 1- - 00 RE 8 ON ve TN 05 20 20 EN AM 41 11 11 S HE 0 #1 NR HB 20 Y R 75 40 # MG 12 07 TA 5 BL ET TN 37 02 02 3 28 28 WA [...] LG 84 ST ti NE 51 1- 00 RE 0 ON ve X 28 20 20 EN 50 80 11 11 S HE 1 #1 NR MC 20 Y G 75 NA # SA L 12 SP 07 RA 5 Y CI 65 10 10 3 15 30 WA 83 GR Ac TA 16 -2 -2 .0 LG 21 AV ti LO 20 1- - 00 RE 8 ES ve TN 05 20 20 EN AM 41 10 10 S LE 0 #1 SL HB 20 IE R 75 W 40 # MG 12 07 TA 5 BL ET RA 68 10 10 3 60 30 WA 83 GR Ac NI 46 -2 -2 .0 LG 21 AV ti TI 20 1 RE 9 ES ve DI 24 20 [...] # TA 12 BL 07 ET 5 TN 64 08 08 3 30 30 WA [...] 12 33 07 50 5 PO WD TR 00 03 03 1 30 7 CV 34 TH Ac IA 16 -2 -2 .0 S 68 OM ti MC 80 2- 2- 00 PH 69 PS ve IN 00 20 20 AR ON OL 41 10 10 MA ON 5 CY LY E # NN 0. M 1% 02 33 CR 2 EA M KE 45 03 03 1 24 30 CV 34 TH Ac TO 80 -2 -2 0. S 68 OM ti CO 20 2- 2- 00 PH 68 PS ve NA 46 20 20 0 AR ON ZO 56 10 10 MA LE 4 CY LY # NN 2% M 02 SH 33 AM 2 PO O LO 00 03 03 1 16 16 CV 34 TH Ac RA 78 -2 -2 .0 S 68 OM ti TA 15 2- 2- 00 PH 67 PS ve DI 07 20 20 AR ON NE 70 10 10 MA 1 CY LY 10 # NN M MG 02 33 TA 2 BL ET AL 37 03 03 14 14 CV 34 TH Ac LE 20 -2 -2 .0 S 68 OM ti RG 50 2- 2- 00 PH 66 PS ve Y 34 20 20 AR ON RE 88 10 10 MA LI 8 CY LY EF # NN M D- 02 24 33 2 TA BL ET IB 55 11 12 01 90 23 [...] 1- 7- 00 PH 64 EY ve TN 01 20 20 AR AM 10 09 [...] 1- 9- 00 PH 64 EY ve TN 01 20 20 AR AM 10 09 09 MA GI 5 CY NA HB R 23 40 32 MG TA BL ET RA 68 10 11 00 30 30 CV 29 DA Ac NI 46 -2 -0 .0 S 47 BN ti TI 20 7- 5- 00 PH 38 EY ve DI 24 20 20 AR NE 92 09 09 MA GI 0 CY NA 30 0 23 MG 32 TA BL ET MCINTOSH 53 10 11 00 20 10 CV 29 No Ac LF 74 -1 -0 .0 S 07 t ti AM 60 7- 5- 00 PH 86 Av ve ET 27 20 20 AR ai HO 20 09 09 MA la XA 5 CY bl ZO e LE 23 -T 32 MP DS TA BL ET TN 00 10 11 00 12 3 CV 29 DA Ac OM 78 -2 -0 .0 S 47 BN ti ET 11 7- 5- 00 PH 39 EY ve BOWDEN 83 20 20 AR ZI 00 09 09 MA GI NE 1 CY NA 25 23 32 MG TA BL ET 00 05 05 00 30 5 CV 23 HI Ac 40 -1 -2 .0 S 79 GH ti 60 5- 1- 00 PH 04 ve 35 20 20 AR JR 80 09 09 MA 5 CY CU RT 23 IS 32 L 00 05 05 00 8. 2 CV 23 HI Ac 07 -1 -2 00 S 79 GH ti 80 5- 1- 0 PH 06 ve 05 20 20 AR JR 40 09 09 MA 5 CY CU RT 23 IS 32 L DO 00 05 05 00 6. 3 CV 23 HI Ac XY 14 -1 -2 00 S 79 GH ti CY 33 5- 1- 0 PH 05 ve CL 14 20 20 AR JR IN 20 09 09 MA E 5 CY CU HY RT CL 23 IS AT 32 L E 10 0 MG CA P TR 00 05 05 00 12 3 CV 23 SA Ac AM 09 -1 -2 .0 S 73 DE ti AD 30 3- 1- 00 PH 05 K ve OL 05 20 20 AR MO 80 09 09 MA BOWDEN HC 5 CY ME L D 50 23 H 32 MG TA BL ET 00 01 01 00 30 30 CV [...] 1 CY LI A 23 A 32 PE 45 11 11 00 12 2 CV 17 AD Ac RM 80 -1 -2 0. S 67 KI ti ET 20 0- 0- 00 PH 35 NS ve HR 26 20 20 0 AR IN 93 08 08 MA JU 7 CY LI 5% A 23 A CR 32 EA M MCINTOSH 53 11 11 00 14 7 CV 17 CH Ac LF 74 -0 -2 .0 S 42 AN ti AM 60 3- 0- 00 PH 72 DL ve ET 27 20 20 AR ER HO 20 08 08 MA XA 5 CY KR ZO IS LE 23 TY -T 32 MP DS TA BL ET 00 10 11 00 20 3 CV [...] la 3 CY bl e 23 32 TN 00 03 04 00 10 7 CV [...] la 5 CY bl e 23 32 SK 60 [...] la 0 CY bl e 23 32 59 02 [...] la 1 CY bl e 23 32 Encounters Encounter Start End Date Code Location Performer Type Date [facility] - 7 7 [facility] 1 [facility] 0 0 [facility] 0 0 [facility] - 9 9 [facility] - 9 N [facility] - 9 N [facility] - 9 N [facility] - 8 N [facility] [place] [id number] 8 N [facility]
--- OUTSIDE RECORDS SUMMARY | 2017-09-07 15:50 | External Medical Summary Rpt | CCD ---
Author Author , JED Organization JED Address Unknown Phone [email or web address] Care Team Providers Care Art Gallery Director Name Role Phone A Leslie ZAMORA MD PSC, A Unavailable Unavailable Leslie ZAMORA MD [facility] Un[facility] Unavailable [facility], [facility] HERNAN GREEN A, Unavailable Unavailable AHMED BECERRA A Anshul QUISPE, Unavailable Unavailable Anshul QUISPE BRAUN Unavailable Unavailable DEON BERT, Unavailable Unavailable DEON BERT [facility] # [id number], Unavailable Unavailable [facility] # [id number] [facility], Unavailable Unavailable [facility] [address] SHAHID DABNEY, Unavailable Unavailable GARY RANGEL, Unavailable Unavailable GARY MEIER GAINEY Unavailable Unavailable [facility] Unavailable Unavailable [facility], [facility] BETTY ALVAREZ, BETTY Unavailable Unavailable LES JENS HERNÁNDEZ, Unavailable Unavailable JENS HERNÁNDEZ RHONDA G, Unavailable Unavailable BEAU LYLE [facility] Unavailable Unavailable INC, [facility] Unavailable Unavailable [facility] DORINA MCCORMACK JR, Unavailable Unavailable DORINA MCCORMACK JR [facility], Unavailable Unavailable [facility], Unavailable Unavailable [facility] Unavailable Unavailable PIKE, [facility] Unavailable Unavailable [facility], [facility] Unavailable Unavailable [facility], [facility] Unavailable Unavailable [facility]ING, [facility] Unavailable Unavailable SERVICES, [facility] MORGAN ELICIA, MORGAN ELICIA Unavailable Unavailable [facility], Un[facility] Un[facility], [facility] Unavailable Unavailable LAB, [facility], Unavailable Unavailable [facility] Unavailable Unavailable [id number] # [id number], [facility] [address] # 0393 SCALF LEI, SCALF LEI Unavailable Unavailable NICOLE POND, Unavailable Unavailable NICOLE POND SUSAN E, Unavailable Unavailable BEBO SAUL LYNN M, Unavailable Unavailable LILIANA SHETH [facility] # Unavailable Unavailable [id number], [facility] # [id number] [facility][id number] # Unavailable Unavailable [address], [facility]09193 # [id number] [facility] Unavailable Unavailable DEPT CLIFF, [facility] WELISA III KRISTINA, Unavailable Unavailable WEMAN III ROSA MURRAY, Unavailable Unavailable ROSA NOYOLA Purpose Continuity of Care Document - 12-17-2007 through 2016 Problems Code Diagnosis DOS Provider Status L400 PSORIASIS 07-31-2017 [facility] [id number] OTHER LONG 07-31-2017 [facility] CURRENT INC DRUG THERAPY [id number] MIGRAINE 05-18-2017 [facility] INTRACT PLL[facility] W/STAT MIGRAINOSUS [id number] MIGRAINE 05-17-2017 [facility] NOT INTRACT INC W/O STAT MIGRAIN Z720 TOBACCO USE 05-17-2017 [facility] J309 ALLERGIC 02-20-2017 [facility] RHINITIS PHYSICIAN UNSPECIFIED GROUP M1990 UNSPECIFIED 02-20-2017 [facility] PHYSICIAN OSTEOARTHRI GROUP TIS UNSPECIFIED SITE J0100 ACUTE 10-08-2016 [facility] MAXILLARY PHYSICIAN SINUSITIS GROUP UNSPECIFIED L409 PSORIASIS 08-19-2016 [facility] UNSPECIFIED PHYSICIANS GROUP M2550 PAIN IN 08-19-2016 [facility] UNSPECIFIED PHYSICIANS JOINT GROUP L408 OTHER 07-09-2016 [facility] L578 OT SKN 07-09-2016 OLIVEIRA CHANGES D/T CHRN EXPS TO NONIONIZING RAD Z111 ENCOUNTER 05-20-2016 [facility] SCREENING [facility] DE[facility] RESPIRATORY CLIFF TUBERCULOSI S 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 L298 OTHER 02-19-2016 [facility] PRURITUS L853 XEROSIS 02-19-2016 [facility] CUTIS R17721 MIGRAINE 12-21-2015 [facility] UNS NOT PHYSICIANS INTRACT W/O GROUP STATUS MIGRAINOSUS J209 ACUTE 12-21-2015 [facility] BRONCHITIS PHYSICIANS UNSPECIFIED GROUP R112 NAUSEA WITH 12-21-2015 [facility] VOMITING PHYSICIANS UNSPECIFIED GROUP R51 HEADACHE 12-15-2015 [facility] 5920 CALCULUS OF 06-15-2015 [facility] 5921 CALCULUS OF 06-15-2015 [facility] URETER [facility], [facility] 91797 ABDOMINAL 06-13-2015 [facility] PAIN OTHER MEDICAL SPECIFIED IMAGING ASS SITE 5589 OTH&UNSPEC 06-12-2015 [facility] NONINFECTIO PHYSICIANS, [facility] ITIS&COLITI S 6202 OTHER AND 06-10-2015 [facility] UNSPECIFIED MEDICAL OVARIAN IMAGING ASS CYST 03698 VOMITING 06-10-2015 [facility] ALONE [facility] 37558 UNSPECIFIED 06-05-2015 [facility] INFECTIVE PHYSICIANS OTITIS GROUP EXTERNA 4779 ALLERGIC 06-05-2015 [facility] RHINITIS PHYSICIANS CAUSE GROUP UNSPECIFIED 36094 ACUT 05-31-2015 [facility] MEDIA W/SPONT RUP EARDRUM 37245 ACUT 05-03-2015 [facility]AT[facility] MEDIA W/O SPONT RUP EARDRUM 5990 URINARY 05-03-2015 [facility] SITE NOT SPECIFIED 591 HYDRONEPHRO 02-26-2015 [facility] SIS [facility] 31081 ABDOMINAL 02-26-2015 [facility] PAIN, MEDICAL UNSPECIFIED IMAGING ASS SITE 5935 HYDROURETER 02-25-2015 [facility] 7880 RENAL COLIC 02-25-2015 [facility] 61666 ESOPHAGEAL 02-02-2015 A Leslie ZAMORA REFLUX [facility] 7245 UNSPECIFIED 02-02-2015 A Leslie ZAMORA BACKACHE [facility] 7881 DYSURIA 02-02-2015 [facility] 22324 HEMATURIA 01-12-2015 [facility] UNSPECIFIED [facility]ICAL IM[facility]ING ASS 4659 ACUTE URIS 11-01-2014 A Leslie SANCHEZ [facility] UNSPECIFIED SITE 11346 PAIN IN 11-01-2014 [facility] JOINT, MEDICAL ANKLE AND IMAGING ASS FOOT 3804 IMPACTED 10-10-2014 A Leslie WARD MD [facility] 86544 ACHILLES 08-30-2014 [facility] BURSITIS OR PHYSICIANS TENDINITIS GROUP 30189 OTHER ANKLE 08-30-2014 [facility] SPRAIN AND PHYSICIANS STRAIN GROUP 4619 ACUTE 05-26-2014 TIM TY SINUSITIS, UNSPECIFIED 4770 ALLERGIC 03-29-2014 MORGAN ELICIA RHINITIS DUE TO POLLEN 7804 DIZZINESS 03-29-2014 MORGAN ELICIA AND GIDDINESS 18853 DIARRHEA 10-16-2012 [facility] 16438 ABDOMINAL 10-16-2012 WEHRMAN III PAIN, KRISTINA EPIGASTRIC V4589 OTHER 10-16-2012 DEON POSTSURGICA BERT L STATUS OTHER 20062 NAUSEA WITH 05-23-2011 [facility] 44688 NAUSEA 05-23-2011 [facility] 462 ACUTE 01-04-2011 [facility] PHARYNGITIS HEALTHCARE CENTER 7862 COUGH 01-04-2011 [facility] 97960 UNSPECIFIED 11-16-2010 [facility] SEBORRHEIC HEALTHCARE DERMATITIS CENTER 3671 MYOPIA 11-08-2010 [facility] 51592 REGULAR 11-08-2010 [facility] 41892 OTHER 11-08-2010 [facility] 7836 POLYPHAGIA 11-08-2010 [facility] 66470 OTHER 11-06-2010 [facility] ABNORMAL [facility] GLUCOSE CENTER 7835 POLYDIPSIA 10-31-2010 [facility] V703 OTH GENERAL 10-31-2010 [facility] MEDICAL [facility] EXAMINATION CENTER ADMIN PURPOSES 05229 MIGRAINE 07-26-2010 [facility] UNSP W/O HEALTHCARE INTRACT W/O CENTER STATUS MIGRAINOSUS 7823 EDEMA 05-21-2010 [facility] 35772 UNSPECIFIED 02-06-2010 PATHOLOGY & CHRONIC CYTOLOGY HEPATITIS LAB 5718 OTHER 02-06-2010 [facility]DE[facility], CHRONIC GARY NONALCOHOLI C LIVER DISEASE 16402 CHOLECYSTIT 02-06-2010 [place] IS, ANESTHESIA UNSPECIFIED GROUP PSC 13594 CHRONIC 02-06-2010 PATHOLOGY & CHOLECYSTIT CYTOLOGY IS LAB 5756 CHOLESTEROL 02-06-2010 [facility], OSIS OF GARY [facility] 5758 OTHER 01-31-2010 [facility], SPECIFIED GARY DISORDER OF GALLBLADDER V7283 OTHER 01-31-2010 [place] SPECIFIED [facility] PRE-OPERATI HOSPITAL VE EXAMINATION 76928 ABDOMINAL 01-25-2010 [facility] [place] PAIN RIGHT RADIOLOGY UPPER QUADRANT 77790 ABDOMINAL 01-25-2010 [place] TENDERNESS [facility] RIGHT UPPER HOSPITAL QUADRANT 6269 UNS D/O 01-23-2010 [facility] MENSTRUATIO HEALTHCARE N&OTH ABN CENTER BLEED FE GNT TRACT 7242 LUMBAGO 01-23-2010 [facility] 04290 UNSPECIFIED 01-09-2010 [facility] CONSTIPATIO CENTER N 9953 ALLERGY 12-25-2009 [facility] UNSPECIFIED HEALTHCARE NOT CENTER ELSEWHERE CLASSIFIED 70286 CALCU 07-21-2009 [facility] W/O MENTION SERVICES CHOLECYST/O BST 6259 UNSPEC 03-23-2009 [place] SYMPTOM OBSTETRICS ASSOC AND W/FEMALE GYNECOLOGY GENITAL ORGANS V255 INSERTION 03-23-2009 [place] OF OBSTETRICS IMPLANTABLE [place] [address] COMPLETE 03-17-2009 [place] SPONTANEOUS OBSTETRICS AB WITHOUT AND MENTION GYNECOLOGY COMP 6268 OTH D/O 02-17-2009 [place] MENSTRUATIO [facility] N&OTH ABN HOSPITAL BLEED FE GNT TRACT 632 MISSED 02-17-2009 [place] OBSTETRICS AND GYNECOLOGY 6200 FOLLICULAR 02-15-2009 [facility] [place] CYST OF RADIOLOGY OVARY 69245 URGENCY OF 10-18-2008 JAZMÍN, URINATION ROSA K V1301 PERSONAL 10-18-2008 JAZMÍN, HISTORY OF ROSA K URINARY CALCULI V1302 PERSONAL 10-18-2008 JAZMÍN, HISTORY OF ROSA K URINARY TRACT INFECTION 7041 HIRSUTISM 10-10-2008 [facility] 61406 POLYURIA 10-10-2008 [facility] 7821 RASH AND 08-29-2008 [place] OTHER [facility] NONSPECIFIC HOSPITAL SKIN ERUPTION V642 SURG/OTH 08-29-2008 [place] PROC NOT [facility] CARRIED OUT HOSPITAL BECAUSE PTS DECN V2509 OT GENERAL 01-09-2008 [facility] CNSL&ADVICE CENTER CONTRACEPT MANAGEMENT V7231 ROUTINE 01-04-2008 [facility] AL CENTER EXAMINATION V7389 SPECIAL 01-04-2008 [facility] S[facility]EN[facility] [place] INC EXAMINATION OT SPEC VIRAL DZ V745 SCREENING 01-04-2008 [facility] EXAM[place]ATION [place] INC FOR VENEREAL DISEASE V748 SCR 01-04-2008 [facility] EXAMINATION [place] INC OT SPEC BACTERL&SPI ROCHETAL DZ V758 SCREENING 01-04-2008 [facility] EXAMINATION [place] INC OT SPEC PARASITIC INFS V762 SCREENING 01-04-2008 [facility] FOR [place] INC MALIGNANT NEOPLASM OF THE CERVIX 09374 WHEEZING 12-24-2007 [facility] 8479 SPRAIN AND 12-24-2007 [facility] UNSPECIFIED CENTER SITE OF BACK 0340 STREPTOCOCC 12-17-2007 [facility] SORE [facility] THROAT HOSPITAL 463 ACUTE 12-17-2007 [facility] TONSILLITIS N EMERGENCY PHYS INC 6930 DERMATITIS 12-17-2007 [facility] DRUGS&MEDIC HOSPITAL CHITRA TAKEN INTERNALLY 48289 UNS ADVRS 12-17-2007 [facility] EFF UNS RX N EMERGENCY MEDICINAL&B PHYS INC IOLOGICAL [facility] E9478 OT 12-17-2007 [facility] RX&MEDICINA N EMERGENCY L [facility] CAUS ADVRS EFF TX USE [...] 02 03 2. 28 00 SE Ac OR 07 -1 -2 00 00 ND ti RA 44 6- 4- 0 00 ER ve 33 20 20 73 RA 40 90 17 17 66 2 44 RX MG /0 PH .8 AR MA ML CY PE N HU 00 12 03 2. 28 00 SE Ac OR 07 -2 -0 00 00 ND ti [...] 12 01 4. 28 00 SE Ac OR 07 -0 -0 00 00 ND ti [...] E TA 10 BL 05 ET 91 DE 37 08 08 0 30 30 WA [...] 1- - 00 RE 8 ON ve DE 05 20 20 EN AM 41 11 11 S HE 0 #1 NR HB 20 Y R 75 40 # MG 12 07 TA 5 BL ET DE 37 02 02 3 28 28 WA [...] 1- - 00 RE 8 ES ve DE 05 20 20 EN AM 41 10 [...] # TA 12 BL 07 ET 5 DE 64 08 08 3 30 30 WA [...] 1- 7- 00 PH 64 EY ve DE 01 20 20 AR AM 10 09 [...] 1- 9- 00 PH 64 EY ve DE 01 20 20 AR AM 10 09 [...] -T 32 MP DS TA BL ET DE 00 10 11 00 12 3 CV [...] la 3 CY bl e 23 32 DE 00 03 04 00 10 7 CV [...] End Date Code Location Performer Type Date [facility] - 7 7 [facility] - 7 7 [facility] - 7 7 [facility] - 6 6 [facility] - 5 5 [facility] - 5 5 [facility] - 5 5 [facility] - 3 3 [facility] - 1 1 [facility] - 0 0 N [facility] - 0 0 N [facility] - 0 0 [facility] - 9 9 N [facility] - 9 N [facility] - 9 N [facility] - 9 N [facility] - 8 N [facility] [place] [address] [address] [facility]
--- OUTSIDE RECORDS SUMMARY | 2017-09-07 15:51 | External Medical Summary Rpt | CCD ---
Demographics Preferred Language Solomon Islander Marital Status Unknown Restorationist Affiliation Unknown Race Unknown Ethnic Group Unknown Author Author , JED ADKINS Address Unknown Phone Immunization Unable to retrieve immunization data due to connection failure with Immunization Registry. Please try again later.
--- OUTSIDE RECORDS SUMMARY | 2017-09-07 15:51 | External Medical Summary Rpt | CCD ---
Demographics Preferred Language Paraguayan Marital Status Unknown Gnosticist Affiliation Unknown Race Unknown Ethnic Group Unknown Author Author , JED ADKINS Address Unknown Phone Immunization Unable to retrieve immunization data due to connection failure with Immunization Registry. Please try again later.
--- OUTSIDE RECORDS SUMMARY | 2017-09-07 15:51 | External Medical Summary Rpt ---
Author Author JED Дмитрий, JED [employer] Organization [employer] Address Unknown Phone Unavailable Results Cobalamin (Vitamin B12) [Mass/volume] in Serum Observa Value Referen Units Interpr Notes Date tion ce etation Range Cobalamin 211 - 946 pg/mL No Performed Aug 14 (Vitamin informati at: CB 2016 B12) on in - [facility] 11:30 AM [Mass/vol source ume] in data [id number] Serum 0 [place], [place] [id number] Digital Solution Architect: Jaime Powell PhD, Phone: [phone] 25-Hydroxyvitamin D [Mass/volume] in Serum or Plasma Observa Value Referen Units Interpr Notes Date tion ce etation Range 25-Hydrox 30.0 - ng/mL Low Vitamin D Aug 14 yvitamin 100.0 2017 D deficienc 11:30 AM [Mass/vol y has ume] in been Serum or defined Plasma by the [place] [facility] e and an Endocrine Society practice guideline as alevel of serum 25-OH vitamin D less than 20 ng/mL (1,2).The Endocrine Society went on to further define vitamin Dinsuffic iency as a level between 21 and 29 ng/mL (2).1. IOM (Institut e of Medicine) . 2010. Dietary reference intakes for calcium and D. [place]: TheNation al Academies Press.2. Dru MF, [place], June Alcantar BOWDEN, et al.Evalua tion, treatment , and preventio n of vitamin Ddeficien cy: an Endocrine Society clinical practiceg uideline. JCEM. 2010; 96(7):191 1-30.Perf ormed at: CB - [facility] [id number] [place], [place] [id number] Digital Solution Architect: Jaime Powell PhD, Phone: [phone] Hemoglobin A1c in Blood Observa Value Referen Units Interpr Notes Date tion ce etation Range Hemoglo 5.4 0.0 - % Normal < 6% Aug 14 bin A1c 7.0 NON-PAUL 2017 in [facility] 11:30 Blood LEVEL< AM 7% CONTROL LED DIABETI C LEVEL> 8% POORLY CONTROL LED DIABETI C LEVEL Comprehensive metabolic 2000 panel in Serum or Plasma Observa Value Referen Units Interpr Notes Date tion ce etation Range Albumin/G 1.1 - 1.8 No Low No Aug 14 lobulin informati informati 2016 [Mass on in on in 11:30 AM ratio] in source source Serum or data data Plasma Albumin 3.4 - 5.0 gm/dL Normal No Aug 14 [Mass/vol informati 2016 ume] in on in 11:30 AM Serum or source Plasma data Alkaline 46 - 116 U/L Normal No Aug 14 phosphata informati 2016 se on in 11:30 AM [Enzymati source c data activity/ volume] in Serum or Plasma Bilirubin 0.2 - 1.0 mg/dL Normal No Aug 14 .total informati 2016 [Mass/vol on in 11:30 AM ume] in source Serum or data Plasma Urea 7 - 18 mg/dL Normal No Aug 14 nitrogen informati 2016 [Mass/vol on in 11:30 AM ume] in source Serum or data Plasma Calcium 8.5 - mg/dL Normal No Aug 14 [Mass/vol 10.1 informati 2016 ume] in on in 11:30 AM Serum or source Plasma data Chloride 98 - 107 mmoL/L Normal No Aug 14 [Moles/vo informati 2016 lume] in on in 11:30 AM Serum or source Plasma data Carbon 21.0 - mmoL/L Normal No Aug 14 dioxide, 32.0 informati 2016 total on in 11:30 AM [Moles/vo source lume] in data Serum or Plasma Creatinin 0.55 - mg/dL Normal No Aug 14 e 1.02 informati 2016 [Mass/vol on in 11:30 AM ume] in source Serum or data Plasma Estimated 59- ML/MIN No REFERENCE Aug 14 informati RANGE: 2017 glomerula on in >60 11:30 AM r source ML/MIN/1. filtratio data 73 SQUARE n rate METERSIf (GF this patient is -A merican, then multiply theresult by 1.210. Globulin 1.3 - 3.2 gm/dL High No Aug 14 [Mass/vol informati 2016 ume] in on in 11:30 AM Serum source data Glucose 74 - 106 mg/dL Normal No Aug 14 [Mass/vol informati 2016 ume] in on in 11:30 AM Serum or source Plasma data Potassium 3.5 - 5.1 mmoL/L Normal No Aug 142016 [Moles/vo on in 11:30 AM lume] in source Serum or data Plasma Sodium 136 - 145 mmoL/L Normal No Aug 14 [Moles/vo informati 2016 lume] in on in 11:30 AM Serum or source Plasma data Aspartate 15 - 37 U/L Normal No Aug 142016 aminotran on in 11:30 AM sferase source [Enzymati data c activity/ volume] in Serum or Plasma Alanine 12 - 78 U/L Normal No Aug 14 aminotran 2016 sferase on in 11:30 AM [Enzymati source c data activity/ volume] in Serum or Plasma Protein 6.4 - 8.2 gm/dL Normal No Aug 14 [Mass/vol informati 2016 ume] in on in 11:30 AM Serum or source Plasma data Thyroxine (T4) free [Mass/volume] in Serum or Plasma Observa Value Referen Units Interpr Notes Date tion ce etation Range Thyroxine 0.76 - ng/dL Normal No Aug 14 (T4) 1.46 2016 free on in 11:30 AM [Mass/vol source ume] in data Serum or Plasma Lipid 1996 panel in Serum or Plasma Observa Value Referen Units Interpr Notes Date tion ce etation Range Cholester < 200 mg/dL High No Aug 14 ol 2016 [Moles/vo on in 11:30 AM lume] in source Unspecifi data ed specimen Cholester 40 - 60 MG/DL Normal No Aug 14 ol in HDL 2016 on in 11:30 AM [Mass/vol source ume] in data Serum or Plasma Cholester 0 - 130 mg/dL High No Aug 14 ol in LDL 2016 on in 11:30 AM [Mass/vol source ume] in data Serum or Plasma by calculati on Triglycer 30 - 200 mg/dL Normal No Aug 14 james 2016 [Moles/vo on in 11:30 AM lume] in source Serum or data Plasma Cholester 0 - 40 No Normal No Aug 14 ol in informati informati 2017 VLDL on in on in 11:30 AM [Mass/vol source source ume] in data data Serum or Plasma Thyrotropin [Units/volume] in Serum or Plasma Observa Value Referen Units Interpr Notes Date tion ce etation Range Thyrotrop 0.358 - uIU/ml Normal No Aug 9 in 3.740 2016 [Units/vo on in 11:30 AM lume] in source Serum or data Plasma CBC W Auto Differential panel in Blood Observa Value Referen Units Interpr Notes Date tion ce etation Range Basophils 0 - 0.2 K/MM3 Normal No Aug 142016 [#/volume on in 11:30 AM ] in source Blood by data Automated count Basophils 0.1 - 2.0 % Normal No Aug 14 /100 2016 leukocyte on in 11:30 AM s in source Blood by data Automated count Eosinophi 0.0 - 0.4 K/mm3 Normal No Aug 14 ls 2016 [#/volume on in 11:30 AM ] in source Blood by data Automated count Eosinophi 0.1 - % Normal No Aug 14 ls/100 12.0 2016 leukocyte on in 11:30 AM s in source Blood by data Automated count Granulocy 1.8 - 7.8 K/mm3 Normal No Aug 14 farooq 2016 [#/volume on in 11:30 AM ] in source Blood by data Automated count Granulocy 37.0 - % Normal No Aug 14 farooq/100 80.0 2016 leukocyte on in 11:30 AM s in source Blood by data Automated count Hematocri 37.0 - % Normal No Aug 14 t [Volume 47.0 2016 on in 11:30 AM Fraction] source of Blood data Hemoglobi 12.2 - g/dL Normal No Aug 14 n 16.2 2016 [Mass/vol on in 11:30 AM ume] in source Blood data Lymphocyt 0.7 - 4.5 K/mm3 Normal No Aug 14 es 2016 [#/volume on in 11:30 AM ] in source Unspecifi data ed specimen by Automated count Lymphocyt 10 - 50.0 % Normal No Aug 14 es 2016 [#/volume on in 11:30 AM ] in source Unspecifi data ed specimen by Automated count Erythrocy 27 - 31.2 pg Normal No Aug 14 te mean 2016 corpuscul on in 11:30 AM ar source hemoglobi data n [Entitic mass] Erythrocy 31.8 - g/dl Low No Aug 14 te mean 35.4 2016 corpuscul on in 11:30 AM ar source hemoglobi data n concentra tion [Mass/vol ume] by Automated count Erythrocy 82.2 - fl Normal No Aug 14 te mean 97.8 2016 corpuscul on in 11:30 AM ar volume source [Entitic data volume] by Automated count Monocytes 0.1 - 1.0 K/mm3 Normal No Aug 14 inform2016 [#/volume on in 11:30 AM ] in source Blood by data Automated count Monocytes 1.7 - 9.3 % Normal No Aug 14 /100 2016 leukocyte on in 11:30 AM s in source Blood by data Automated count Platelet 7.4 - fl Normal No Aug 14 mean 10.4 2016 volume on in 11:30 AM [Entitic source volume] data in Blood by Automated count Platelets 142 - 424 K/mm3 Normal No Aug 14 informati 2016 [#/volume on in 11:30 AM ] in source Blood data Erythrocy 4.2 - 5.4 M/mm3 Normal No Aug 9 farooq inform2016 [#/volume on in 11:30 AM ] in source Amniotic data fluid Erythrocy 11.5 - % Normal No Aug 14 te 17.5 2016 distribut on in 11:30 AM ion width source [Entitic data volume] by Automated count Leukocyte 4.8 - K/MM3 Normal No Aug 14 s 10.8 inform2016 [#/volume on in 11:30 AM ] in source Blood data
--- OUTSIDE RECORDS SUMMARY | 2017-09-07 15:51 | External Medical Summary Rpt ---
Author Author JED Дмитрий, JED [employer] Organization [employer] Address Unknown Phone Unavailable Results Cobalamin (Vitamin B12) [Mass/volume] in Serum Observa Value Referen Units Interpr Notes Date tion ce etation Range Cobalamin 211 - 946 pg/mL No Performed Aug 14 (Vitamin informati at: CB 2016 B12) on in - [facility] 11:30 AM [Mass/vol source ume] in data [id number] Serum 0 [place], [place] [id number] Senior Sourcing Manager: Jaime Powell PhD, Phone: [phone] 25-Hydroxyvitamin D [Mass/volume] in Serum or Plasma Observa Value Referen Units Interpr Notes Date tion ce etation Range 25-Hydrox 30.0 - ng/mL Low Vitamin D Aug 14 yvitamin 100.0 2017 D deficienc 11:30 AM [Mass/vol y has ume] in been Serum or defined Plasma by the [place] [facility] e and an Endocrine Society practice guideline [...] 96(7):191 1-30.Perf ormed at: CB - [facility] [id number] [place], [place] [id number] Senior Sourcing Manager: Jaime Powell PhD, Phone: [phone] Hemoglobin A1c in Blood Observa Value [...]
--- NOTE | 2017-09-07 16:10 | [facility]gent Treatment Center Report ---
History of Present Issue Date/Time Seen by Provider 09/07/17 1603 Visit Reason Pt arrived:Walked Presenting Problem:PT C/O OF COUGH, SINUS PRESSURE, SINUS HEADACHE, HEAD AND CHEST CONGESTION, AND RUNNY NOSE FOR 2 WKS Location if Accident: Onset of symptoms date/time:/ or onset unknown for:MEDICAL HX UNKNOWN Have you (or family members/close friends) recently traveled outside the [place]? N If Yes, where/when: Have you had exposure to infectious disease within the past month? TB? Other? Specify: Patient state that she has been having cough, congestion, sinus pain and pressure. States that she has had a sinus headache for several days States that her sinuses have been congestion for over two weeks and has taken several over the counter medications but nothing has helped State that it has continued to get worse ALLERGIES Coded Allergies: amoxicillin (12/15/15) Home Medications Active Scripts CEPHALEXIN (Keflex 500MG Capsule) 500 MG PO Q8H #21 CAP Prov: 12/15/15 Sumatriptan Succinate (Imitrex 25MG Tablet) 25 MG PO ONCE #10 TAB Prov: 05/18/17 BUTALB/ACETAMINOPHEN/CAFFEINE (Fioricet 50-300-40 MG Capsule) 1 CAP PO Q6HP PRN headache #20 CAP Prov: 05/18/17 Reported Medications Montelukast Sodium 10 MG PO DAILY #30 History Medical History General CAD? No Angina: No [place]: No Hypertension? No Hyperlipidemia? No CHF? No DVT? No PE? No COPD? No Asthma? No Anemia? No GERD? No Gastric ulcers? No GI Bleed? No Hernia? No Thyroid Problems? No Hypothyroidism? No CVA? No Seizures? No Diabetes? No Insulin Dependent: No Insulin Pump: No Home FSBS? No Renal Insuffiency? No UTI? Yes Stones? Yes BPH? No GB Disease: Yes Nephritic Syndrome? No Asplenia? No Hepatitis? No Sickle Cell Disease? No Arthritis? Yes Migraines? Yes Cataracts? No Glaucoma? No MRSA? No HIV? No TB? No Anxiety? No Depression? No Cancer? No More? No Immunization HX DT/Tetanus Unknown Flu Refused Pneumonia Never Had Surgical Hx Previous Surgery?Y [employer] Hx LMP Now Family History Family HX Diabetes Yes CAD Yes Hypertension Yes Hyperlipidemia Yes Cancer Yes TB No Social History Smoking Hx Smoker: Current Every Day Smoker Tobacco: Yes Type Cigarettes Packs/day < 1 Pack Alcohol Alcohol: No Review of Systems All Other Systems Reviewed and Negative Constitutional chills, fever ENT nose pain, nose congestion. Respiratory cough Physical Exam Vital Signs Vital Signs Date Time Temp Pulse Resp B/P Pulse O2 O2 Flow FiO2 Ox Delivery Rate 09/07 1556 98.4 73 20 136/87 98 General Appearance normal appearance, WD/WN, no apparent distress Ear, Nose, Throat Tenderness noted maxillary sinus, reports thick yellowish brown nasal drainage, pressure behind eyes Respiratory Status Yes: trachea midline, chest symmetrical, non tender chest. No: respiratory distress. Cardiovascular normal exam, regular rate/rhythm, no peripheral edema Neurologic alert, normal exam, oriented x 3 Medical Decision Making LABS/Meds/Orders Pt receiving controlled substance in ED? No Departure Departure Time of Disposition 1625 Disposition DC Home or Self Care(routine) Clinical Impression Primary Impression: Sinusitis Qualifiers: Sinusitis location: unspecified location Chronicity: unspecified Qualified Code: J32.9 - Chronic sinusitis, unspecified Condition STABLE Referrals Silvia VIDAL,Zenon Santos (Family): 3 Days-Call Office if no improvement Patient Instructions DI for Sinusitis, Sinus Headache, Sinusitis Additional Instructions * Monitor Temp. Tylenol and/or Ibuprofen as needed. ER if fever is no less than 101 despite alternating Tylenol and Ibuprofen * Encourage fluids, water, Gatorade, powerade, pedialyte if /toddler/or child * Warm salt water gargles for throat irritation *Warm fluids *Sore throat lozenges *Sleep elevated *humidifier or vaporizer Lots of rest Increase fluids, water, Gatorade, powerade *Flonase 2 sprays each nostril daily but may take 2-3 days to notice improvement with it *Bromfed may cause drowsiness. Know how it effect you or your child. Before driving, caring for small children or sending your child to school Follow up IMMEDIATELY for new or worsening of symptoms OR no noticeable improvement over the next 48-72 hours. 911 immediately for any life threatening symptoms such as chest pain or difficulty breathing Discharge Counseling Counseled pt/family regarding diagnosis, medications/RX, home care, follow up needs Prescriptions Current Visit Scripts Azithromycin (Zithromycin (Z-REID) 250MG Tab) 250 MG PO DAILY #6 TAB TAKE TWO (2) TABLETS ON DAY 1, THEN ONE (1) TABLET DAY #2 THRU #5 D-METHORPHAN HB/P-EPD HCL/BPM (Bromfed Dm Cough Syrup) 10 ML PO Q4HP PRN cough #150 SYR Fluticasone Propionate (Flonase 50 Mcg Nasal Daniel) 2 SPRAY NA DAILY #1 BOT Methylprednisolone (Medrol Dose Reid) 4 MG PO UD #1 REID TAKE DIRECTED ON PACKAGING Guaifenesin (Mucinex) 1,200 MG PO BID #20 TER Loratadine (Claritin 10MG) 10 MG PO DAILY #30 TAB at [id number]
[2017-09-07] MEDS ORDERED: CLARITIN 10MG T10 MG PO (16:28)
[2017-09-07] MEDS ORDERED: BROMFED DM COU118 ML PO (16:28)
[2017-09-07] MEDS ORDERED: MUCINEX1200 MG PO (16:28)
[2017-09-07] MEDS ORDERED: MEDROL 4MG. DOSE4 MG PO (16:28)
[2017-09-07] MEDS ORDERED: FLONASE 50 MCG16 GM (16:28)
[2017-09-07] MEDS ORDERED: ZITHROMAX Z PA250 MG PO (16:28)
[2017-09-07 16:37] VITALS: BP 136/87
== END 2017-09-07 16:38 | disposition home or self-care (01) ==
LOC: UTC 15:40
DX: J32.9 Chronic sinusitis, unspecified (principal); F17.210 Nicotine dependence, cigarettes, uncomplicated; Z88.1 Allergy status to other antibiotic agents